=== PATIENT | male | born 1975 | race Two or more races ===

== ENCOUNTER 2016-09-09 10:35 | Inpatient (IN) | payer MEDICARE, OTHER ==
[2016-09-09] MEDS ORDERED: IPRATROPIUM 0.5 MG/2.5 ML NEBU INHALATION STA (11:01)
[2016-09-09] MEDS ORDERED: ALBUTEROL NEBULIZED 2.5 MG/3 ML INHALATION STA (11:01)
[2016-09-09] MEDS ORDERED: KETOROLAC 30 MG/ML 1 ML VIAL IVP STA (11:01)
[2016-09-09] MEDS ORDERED: ACETAMINOPHEN IV (For NPO) 1,000 MG in EMPTY BAG 1 BAG IVPB STA ×2 (11:01→13:52)
[2016-09-09] MEDS ORDERED: SODIUM CHLORIDE 0.9% 1,000 ML IV STA ×2 (11:01)
[2016-09-09] MEDS ORDERED: SODIUM CHLORIDE 0.9% 500 ML IV STA (11:01)
--- NOTE | 2016-09-09 11:28 | ED ---
General Adult HPI - General Chief complaint: Shortness of Breath Stated complaint: congestion Time Seen by Provider: 09/09/16 10:36 Source: family, EMS, RN notes reviewed, old records reviewed Mode of arrival: EMS Limitations: altered mental status - History of Present Illness Initial comments: This is a 40-year-old male here for evaluation. Patient is developmentally delayed history is limited, history of pain patient's her transfer. Work and EMS. Patient has had altered mental status today with known fever, no breathing difficulties. Patient with no known significant family history of sick contact - Related Data Home Medications Medication Instructions Recorded Confirmed Benztropine Mesylate [Cogentin] 1 mg PO BID@0800,1700 09/09/16 09/09/16 Divalproex ER [Depakote ER] 500 mg PO BID@0800,1700 09/09/16 09/09/16 Docusate [Colace] 100 mg PO DAILY@0800 09/09/16 09/09/16 chlorproMAZINE HCL [Thorazine] 100 mg PO DAILY@0800 09/09/16 09/09/16 chlorproMAZINE HCL [Thorazine] 500 mg PO DAILY@1700 09/09/16 09/09/16 guaiFENesin-DM 100-10MG/5ML 20 mg PO Q8H PRN 09/09/16 09/09/16 [Robitussin DM] Allergies Allergy/AdvReac Type Severity Reaction Status Date / Time No Known Allergies Allergy Verified 09/09/16 12:39 Review of Systems ROS Statement: Those systems with pertinent positive or pertinent negative responses have been documented in the HPI. ROS Other: All systems not noted in ROS Statement are negative. Past Medical History Additional Past Medical History / Comment(s): Developmentally delayed History of Any Multi-Drug Resistant Organisms: None Reported Additional Past Surgical History / Comment(s): Cardiac surgery to atira 30 years ago Past Psychological History: No Psychological Hx Reported Smoking Status: Never smoker Past Alcohol Use History: None Reported Past Drug Use History: None Reported General Exam Limitations: altered mental status General appearance: alert, anxious, in distress Head exam: Present: atraumatic, normocephalic, normal inspection Eye exam: Present: normal appearance, PERRL, EOMI. Absent: scleral icterus, conjunctival injection, periorbital swelling ENT exam: Present: mucous membranes dry Neck exam: Present: normal inspection. Absent: tenderness, meningismus, lymphadenopathy Respiratory exam: Present: normal lung sounds bilaterally, accessory muscle use , decreased breath sounds, prolonged expiratory. Absent: wheezes, rales, rhonchi, stridor Cardiovascular Exam: Present: normal rhythm, tachycardia, normal heart sounds. Absent: systolic murmur, diastolic murmur, rubs, gallop, clicks GI/Abdominal exam: Present: soft, normal bowel sounds. Absent: distended, tenderness, guarding, rebound, rigid Extremities exam: Present: normal inspection, full ROM, normal capillary refill. Absent: tenderness, pedal edema, joint swelling, calf tenderness Back exam: Present: normal inspection Neurological exam: Present: alert, oriented X3, CN II-XII intact Psychiatric exam: Present: normal affect, normal mood Skin exam: Present: warm, dry, intact, normal color. Absent: rash Course Vital Signs 09/09/16 09/09/16 09/09/16 10:42 11:21 11:30 Temperature 101.9 F H Pulse Rate 123 H 120 H 120 H Respiratory 20 18 Rate Blood Pressure 108/56 125/65 O2 Sat by Pulse 80 L 97 Oximetry 09/09/16 09/09/16 09/09/16 11:34 12:01 12:25 Temperature Pulse Rate 117 H 119 H 114 H Respiratory 18 Rate Blood Pressure 127/91 O2 Sat by Pulse 89 L Oximetry 09/09/16 13:33 Temperature Pulse Rate 114 H Respiratory 18 Rate Blood Pressure 112/59 O2 Sat by Pulse 92 L Oximetry - Reevaluation(s) Reevaluation #1: 09/09/16 13:54 Patient with minimal improvement after initial prolonged breathing treatment, oxygen still dropping into the 80s on nasal cannula Reevaluation #2: 09/09/16 13:54 Patient states he does feel much better with this fever noted control and with the breathing treatment, patient states he would like to go EKG Findings - EKG Comments: EKG Findings:: EKG shows sinus tachycardia rate 118, NE 162, QRS 96, QTc 462 Medical Decision Making - Medical Decision Making 40 male to ER for evaluation. This patient presents for evaluation of cough congestion fever shortness of breath. Patient with possible flu pneumonia, hypoxia, patient placed on nonrebreather breathing treatments, patient will be admitted for further evaluation of breathing, IV antibiotics. - Lab Data Result diagrams: 09/09/16 11:05 09/09/16 11:05 Lab Results 09/09/16 09/09/16 09/09/16 Range/Units 11:05 11:05 11:05 WBC 5.2 (3.8-10.6) k/uL RBC 4.40 (4.30-5.90) m/uL Hgb 13.9 (13.0-17.5) gm/dL Hct 39.1 (39.0-53.0) % MCV 88.8 (80.0-100.0) fL MCH 31.6 (25.0-35.0) pg MCHC 35.6 (31.0-37.0) g/dL RDW 12.9 (11.5-15.5) % Plt Count 64 L (150-450) k/uL Neutrophils % Not Reportable Neutrophils % (Manual) 45.5 % Band Neutrophils % 21.0 % Lymphocytes % Not Reportable Lymphocytes % (Manual) 16.5 % Monocytes % Not Reportable Monocytes % (Manual) 15.5 % Eosinophils % Not Reportable Basophils % Not Reportable Metamyelocytes % 1.5 % Neutrophils # Not Reportable Neutrophils # (Manual) 3.5 (1.3-7.7) k/uL Lymphocytes # Not Reportable Lymphocytes # (Manual) 0.9 L (1.0-4.8) k/uL Monocytes # Not Reportable Monocytes # (Manual) 0.8 (0-1.0) k/uL Eosinophils # Not Reportable Basophils # Not Reportable Nucleated RBCs 0 (0-0) /100 WBC Manual Slide Review Performed Toxic Granulation Present PT (9.0-12.0) sec INR (<1.1) APTT (22.0-30.0) sec Sodium 136 L (137-145) mmol/L Potassium 4.2 (3.5-5.1) mmol/L Chloride 98 (98-107) mmol/L Carbon Dioxide 25 (22-30) mmol/L Anion Gap 13 mmol/L BUN 27 H (9-20) mg/dL Creatinine 1.60 H (0.66-1.25) mg/dL Est GFR (MDRD) Af Amer 59 (>60 ml/min/1.73 sqM) Est GFR (MDRD) Non-Af 48 (>60 ml/min/1.73 sqM) Glucose 119 H (74-99) mg/dL Calcium 8.9 (8.4-10.2) mg/dL Magnesium 1.3 L (1.6-2.3) mg/dL Total Bilirubin 0.9 (0.2-1.3) mg/dL AST 67 H (17-59) U/L ALT 59 (21-72) U/L Alkaline Phosphatase 59 (38-126) U/L Total Creatine Kinase 191 H (55-170) U/L CK-MB (CK-2) 0.3 (0.0-2.4) ng/mL CK-MB (CK-2) Rel Index 0.2 Troponin I 0.052 H* (0.000-0.034) ng/mL Total Protein 7.0 (6.3-8.2) g/dL Albumin 3.7 (3.5-5.0) g/dL Influenza Type A RNA (Not Detectd) Influenza Type B (PCR) (Not Detectd) 09/09/16 09/09/16 Range/Units 11:23 12:22 WBC (3.8-10.6) k/uL RBC (4.30-5.90) m/uL Hgb (13.0-17.5) gm/dL Hct (39.0-53.0) % MCV (80.0-100.0) fL MCH (25.0-35.0) pg MCHC (31.0-37.0) g/dL RDW (11.5-15.5) % Plt Count (150-450) k/uL Neutrophils % Neutrophils % (Manual) % Band Neutrophils % % Lymphocytes % Lymphocytes % (Manual) % Monocytes % Monocytes % (Manual) % Eosinophils % Basophils % Metamyelocytes % % Neutrophils # Neutrophils # (Manual) (1.3-7.7) k/uL Lymphocytes # Lymphocytes # (Manual) (1.0-4.8) k/uL Monocytes # Monocytes # (Manual) (0-1.0) k/uL Eosinophils # Basophils # Nucleated RBCs (0-0) /100 WBC Manual Slide Review Toxic Granulation PT 12.1 H (9.0-12.0) sec INR 1.2 (<1.1) APTT 32.4 H (22.0-30.0) sec Sodium (137-145) mmol/L Potassium (3.5-5.1) mmol/L Chloride (98-107) mmol/L Carbon Dioxide (22-30) mmol/L Anion Gap mmol/L BUN (9-20) mg/dL Creatinine (0.66-1.25) mg/dL Est GFR (MDRD) Af Amer (>60 ml/min/1.73 sqM) Est GFR (MDRD) Non-Af (>60 ml/min/1.73 sqM) Glucose (74-99) mg/dL Calcium (8.4-10.2) mg/dL Magnesium (1.6-2.3) mg/dL Total Bilirubin (0.2-1.3) mg/dL AST (17-59) U/L ALT (21-72) U/L Alkaline Phosphatase (38-126) U/L Total Creatine Kinase (55-170) U/L CK-MB (CK-2) (0.0-2.4) ng/mL CK-MB (CK-2) Rel Index Troponin I (0.000-0.034) ng/mL Total Protein (6.3-8.2) g/dL Albumin (3.5-5.0) g/dL Influenza Type A RNA Detected H (Not Detectd) Influenza Type B (PCR) Not Detected (Not Detectd) - Radiology Data Radiology results: report reviewed (Chest x-ray 2 view does show positive left lower lobe pneumonia), image reviewed Critical Care Time Critical Care Time: Yes Total Critical Care Time: 31 Disposition Clinical Impression: Community acquired pneumonia, Fever, Sepsis, Hypoxia Disposition: ADMITTED IP TO THIS HOSP Condition: Serious Referrals: Nonstaff,Physician [Primary Care Provider] - 1-2 days
[2016-09-09 11:43] LABS: INR 1.2 (<1.1); Partial Thromboplastin Time 32.4 sec (22.0-30.0); Prothrombin Time 12.1 sec (9.0-12.0)
[2016-09-09 11:43] LABS: Calcium 8.9 mg/dL (8.4-10.2); Magnesium 1.3 mg/dL (1.6-2.3); Potassium 4.2 mmol/L (3.5-5.1); Total Bilirubin 0.9 mg/dL (0.2-1.3)
[2016-09-09 11:50] LABS: CHCM 36.1; HCT 39.1 % (39.0-53.0); HGB 13.9 gm/dL (13.0-17.5); Immature Gran Flag Slight; MCH 31.6 pg (25.0-35.0); MCHC 35.6 g/dL (31.0-37.0); MCV 88.8 fL (80.0-100.0); Mean Platelet Volume 9.9; RDW 12.9 % (11.5-15.5); WBC 5.2 k/uL (3.8-10.6); WBC (Perox) 5.17
[2016-09-09 11:59] LABS: Creatine Kinase MB 0.3 ng/mL (0.0-2.4)
[2016-09-09 12:03] LABS: Troponin I 0.052 ng/mL (0.000-0.034)
[2016-09-09 12:30] LABS: Add Differential Manual Differential; Manual Review Performed
[2016-09-09 12:33] LABS: Nucleated Red Blood Cells 0 /100 WBC (0-0)
[2016-09-09 12:36] LABS: Metamyelocytes % 1.5 %; Total Cells Counted 200; Toxic Granulation Present
--- NOTE | 2016-09-09 12:43 | XR ---
EXAMINATION TYPE: XR chest 2V DATE OF EXAM: 09/09/2016 12:33 PM HISTORY: difficulty breathing. REFERENCE: NONE. FINDINGS: There has been a previous midline sternotomy. There is a left lower lobe infiltrate. This is somewhat masslike in its appearance. There is some ate lectasis at the right lung base. Heart size upper limits of normal. Pleural spaces are clear. IMPRESSION: LEFT LOWER LOBE INFILTRATE. FOLLOW-UP TO RESOLUTION IS SUGGESTED.
[2016-09-09] MEDS ORDERED: LEVOFLOXACIN 750MG-D5W PMX 750 MG in DEXTROSE/WATER 1 150ML.BAG IVPB STA (12:48)
[2016-09-09] MEDS ORDERED: OSELTAMIVIR 75 MG CAP PO STA (13:34)
[2016-09-09] MEDS ORDERED: PNEUMONIA PROTOCOL UTILIZED 1 EACH MISC PO PRN (13:48)
[2016-09-09] MEDS ORDERED: IBUPROFEN 800 MG TAB PO PRN (13:52)
[2016-09-09] MEDS: MAGNESIUM SULFATE-D5W PMX 1 GM in DEXTROSE/WATER 1 100ML.BAG IVPB SCH ×2 (15:34→16:18)
[2016-09-09] MEDS: IPRATROPIUM-ALBUTEROL 3 ML NEB INHALATION SCH ×2 (15:56→19:38)
[2016-09-09] MEDS: SODIUM CHLORIDE 0.9% 1,000 ML IV SCH (16:35)
[2016-09-09 17:04] LABS: ABG Base Excess -1.3 mmol/L; ABG HCO3 23 mmol/L (21-25); ABG PCO2 37 mmHg (35-45); ABG PH 7.41 (7.35-7.45); ABG PO2 62 mmHg (83-108); ABG TCO2 24 mmol/L (19-24)
[2016-09-09 18:13] LABS: Glucose,Whole Blood 132 mg/dL (75-99)
[2016-09-09 18:29] VITALS: BMI 31.0
[2016-09-09] MEDS ORDERED: LORazepam 2 MG/ML SYRINGE IV PRN (18:31)
[2016-09-09] MEDS ORDERED: DIVALPROEX ER 500 MG TAB.ER.24H PO STA (18:57)
[2016-09-09] MEDS ORDERED: BENZTROPINE MESYLATE 1 MG TAB PO ONE (19:00)
[2016-09-09] MEDS: ACETAMINOPHEN IV (For NPO) 1,000 MG in EMPTY BAG 1 BAG IVPB SCH (19:06)
--- NOTE | 2016-09-09 19:07 | P.CNPUL ---
History of Present Illness Consult date: 09/09/16 Reason for consult: pneumonia History of present illness: 40-year-old male patient with mental retardation/trainable mental illness, history of congenital heart disease requiring a cardiac surgery at a young age ( probably a repair of a PFO or ASD/VSD), along with history of seizures, who lives in a [facility] in [facility] in [place]. The patient was visiting his family and his father noted that over the past 24 hours the patient 's breathing has gotten worse and he has congested cough and he labored breathing. No documented fever or chills. History is somewhat limited because of patient's underlying mental retardation. Despite his mental limitation, the patient according to the father is able to perform some activities of daily life including self-feeding, toileting and interacting with others on a regular basis. In the burst department, the patient was found to be febrile with a temperature of 11.9. His pulse was 123. His aspiration was 20 and his blood pressure was 108/56. He was hypoxic with a pulse ox of 80% on room air. He was placed on high flow oxygen at 15 L per minute nasal cannula. Influenza screen was positive for influenza A. He was started on Tamiflu and Levaquin. He was sent to med surgical floor and following that the patient got moved to the intensive care unit due to concern of hypoxemia. Currently the patient is on IV fluids at 100 mL an hour. He received a total of 2 L of IV bolus. He seems to be much more comfortable and less short of breath. He still requiring high flow oxygen at 15 L. Chest exit shows lower lobe infiltrates worse on the left. No pleural effusion. On his cell counts, the patient is otherwise second of 5.2 with 21% bandemia. Platelet counts are low at 64,000. The patient seems to have a acute kidney injury with a creatinine of 1.6. Could be related to a prerenal azotemic picture. Magnesium is low at 1.3. First set of troponin was at 0.05. Her blood gases that were done on the percent nonrebreather facemask showed a pH of 7.41 with a pCO2 of 37 and pO2 of 62. No reported aspiration. Review of Systems ROS unobtainable: due to mental status Past Medical History Additional Past Medical History / Comment(s): Developmentally delayed, Mental retardation, congenital heart disease with a cardiac surgery was done at the young pediatric age which involves closure of a hole between the cardiac chambers which could be potentially a PFO or ASD or VSD, seizure disorder History of Any Multi-Drug Resistant Organisms: None Reported Additional Past Surgical History / Comment(s): Cardiac surgery 30 years ago Past Psychological History: No Psychological Hx Reported Smoking Status: Never smoker Past Alcohol Use History: None Reported Past Drug Use History: None Reported Medications and Allergies Home Medications Medication Instructions Recorded Confirmed Type Benztropine Mesylate [Cogentin] 1 mg PO BID@0800,1700 09/09/16 09/09/16 History Divalproex ER [Depakote ER] 500 mg PO BID@0800,1700 09/09/16 09/09/16 History Docusate [Colace] 100 mg PO DAILY@0800 09/09/16 09/09/16 History chlorproMAZINE HCL [Thorazine] 100 mg PO DAILY@0800 09/09/16 09/09/16 History chlorproMAZINE HCL [Thorazine] 500 mg PO DAILY@1700 09/09/16 09/09/16 History guaiFENesin-DM 100-10MG/5ML 20 mg PO Q8H PRN 09/09/16 09/09/16 History [Robitussin DM] Allergies Allergy/AdvReac Type Severity Reaction Status Date / Time No Known Allergies Allergy Verified 09/09/16 12:39 Physical Exam Vitals: Vital Signs Temp Pulse Pulse Resp BP BP Pulse Ox 09/09/16 17:51 97.9 F 107 H 19 130/62 93 L 09/09/16 17:33 97.1 F L 106 H 24 91/56 90 L 09/09/16 17:16 18 09/09/16 16:07 105 H 09/09/16 16:00 99.1 F 09/09/16 15:56 111 H 09/09/16 15:52 89 18 98/57 90 L 09/09/16 14:13 92 L 09/09/16 13:59 101.4 F H 114 H 18 108/56 93 L Intake and Output 09/09/16 09/09/16 09/09/16 06:59 14:59 22:59 Other: Weight 95.25 kg Patient Weight 09/10/16 06:59 Weight 95.25 kg Head exam was generally normal. There was no scleral icterus or corneal arcus. Mucous membranes were moist. Mucous membranes are dry and the patient is a large tongue with significant crowding of the posterior oropharynx. No with or neck masses. No thrush. Lungs sounds are diminished in lung bases along with some bibasilar crackles also on the left. Heart sounds are regular, slightly tachycardic, positive S1-S2 and there is no significant murmurs appreciated. Sternum stable clean and intact.Abdominal exam revealed normal bowel sounds. The abdomen was soft, non-tender, and without masses, organomegaly, or appreciable enlargement of the abdominal aorta.Examination of the extremities revealed easily palpable radial, femoral and pedal pulses. There was no cyanosis , clubbing or edema. Neurologically the patient is awake and he is following Simple Commands. The Patient Is Able to Move All 4 Extremities without Any Limitation. Results - Laboratory Findings CBC and BMP: 09/09/16 11:05 09/09/16 11:05 ABG ABG pH 7.41 (7.35-7.45) 09/09/16 16:48 ABG pCO2 37 mmHg (35-45) 09/09/16 16:48 ABG pO2 62 mmHg (83-108) L 09/09/16 16:48 ABG O2 Saturation 92.0 % (94-97) L 09/09/16 16:48 PT/INR, D-dimer PT 12.1 sec (9.0-12.0) H 09/09/16 11:23 INR 1.2 (<1.1) 09/09/16 11:23 Abnormal lab findings: Abnormal Labs 09/09/16 09/09/16 16:48 18:01 ABG pO2 62 L ABG O2 Saturation 92.0 L POC Glucose (mg/dL) 132 H - Diagnostic Findings Chest x-ray: image reviewed Assessment and Plan Plan: Assessment 1 acute bilateral lower lobe and he was a pneumonia, worse on the left. 2 acute hypoxic respiratory failure secondary to above 3 acute kidney injury probably related to intravascular volume depletion/ dehydration. Rule out prerenal azotemia. Rule out ATN 4 bandemia without leukocytosis 5 thrombocytopenia, chronicity is not known, no signs of any DIC at this point knowing that the rest of the correlation profile is within normal limits 6 mental retardation/developmental delay 7 congenital heart disease with a previous cardiac surgery 8 seizure disorder Plan Continue IV fluid with normal saline at the rate of 100 and hour. The patient or the being given 2 L of IV fluid bolus. Monitor urine output. Continue Tamiflu. Continue Levaquin. Continue systemic steroids. Continue bronchodilators. Keep the patient on high flow oxygen 15 L/m nasal cannula. Daily chest x-rays. Keep the patient in droplet isolation. All of his outpatient oral medication will be resumed. He is a full code and he'll be monitored very closely in the ICU. Condition is critical at this point. Would offer this patient DVT and GI prophylaxis in addition.
[2016-09-09] MEDS ORDERED: CHLORPROMAZINE 100 MG PO ONE (19:30)
[2016-09-09 19:56] LABS: Hemoglobin A1C 5.1 % (4.2-6.1)
[2016-09-09] MEDS: methylPREDNISolone SOD SUCCI 40 MG/ML 1 ML VIAL IV SCH (20:04)
[2016-09-09 20:52] LABS: Appearance,Urine Clear (Clear); Bilirubin,Urine Negative (Negative); Glucose,Urine (UA) Negative (Negative); Ketones,Urine Negative (Negative); Leukocyte Esterase,Urine Negative (Negative); Nitrite,Urine Negative (Negative); PH, Urine 5.5 (5.0-8.0); Protein,Urine Negative (Negative); Specific Gravity,Urine 1.008 (1.001-1.035); UA Billing (MACRO vs. MICRO) CHEM; Urobilinogen,Urine <2.0 mg/dL (<2.0)
[2016-09-09] MEDS: INSULIN LISPRO (humaLOG) 300 UNIT/3 ML VIAL SQ SCH (20:52)
[2016-09-09 20:53] LABS: Glucose,Whole Blood 108 mg/dL (75-99)
[2016-09-09] MEDS: OSELTAMIVIR 75 MG CAP PO SCH (20:53)
[2016-09-09] MEDS: BUDESONIDE 1 MG/2 ML NEBU INHALATION SCH (20:55)
[2016-09-09] MEDS: FORMOTEROL FUMARATE 20 MCG/2 ML NEBU INHALATION SCH (20:56)
--- NOTE | 2016-09-09 22:20 | HP ---
DATE OF ADMISSION: 09/09/2016 CHIEF COMPLAINT: Shortness of breath and cough. HISTORY OF PRESENT ILLNESS: This 40-year-old gentleman with a past history of developmental delay, cardiac surgery, being followed by a primary physician elsewhere, apparently in [place], was taken to [facility] for further evaluation and treatment. The patient was complaining of shortness of breath. He is living in a facility in [place]. The family lives in [place]. The patient was complaining of shortness of breath and cough and multiple other symptomatology. Patient came to [facility]. Chest x-ray showed bilateral pneumonia. Influenza A was positive. Patient had multiple lab abnormalities, including thrombocytopenia as well as renal failure. There is no history of any fever, rigor or chills. A detailed history could not be taken from the patient because of change in mental status. Most of the history was taken from my discussion with staff as well as review of the chart to the. PAST MEDICAL HISTORY: 1. History of developmental delay. 2. History of cardiac surgery. 3. Possibly ASD defect. Medications are: 1. Thorazine 100 mg p.o. daily. 2. Robitussin DM 20 mg q.8 p.r.n. 3. Colace 100 mg p.o. daily. 4. Thorazine 500 mg p.o. daily. 5. Cogentin 1 mg p.o. b.i.d. 6. Depakote ER 500 mg p.o. b.i.d. ALLERGIES: NONE. Family history, social history, review of systems could not be taken at length. No smoking or alcohol per chart. PHYSICAL EXAMINATION: Patient is conscious, oriented x1. Pulse 106, blood pressure 91/53, respiration 24, temperature 97.1, pulse ox 98% on 15 with non-breather. HEENT: Conjunctivae normal. Oral mucosa moist. NECK: Accessory muscles or respiration acting. CARDIOVASCULAR SYSTEM: S1, S2 muffled. No S3. No S4. RESPIRATORY SYSTEM: Breath sounds diminished at the bases. Bilateral scattered rhonchi and crackles. No bronchial breath sounds. ABDOMEN: Soft, nontender. No mass palpable. LEGS: No edema. No swelling. NERVOUS SYSTEM: Higher functions as mentioned earlier. Moves all 4 limbs. No focal motor or sensory deficit. LYMPHATICS: No lymph node palpable in neck, axillae or groin. SKIN: No ulcer, rash, bleeding. Labs at this time show platelets 64, white count 5.2. INR is 1.2. ABGs showed pO2 of 62. Creatinine is 1.60, sodium 136. Troponin 0.052. ASSESSMENT: 1. Acute influenza A with bilateral pneumonia, possibly Gram-negative with sepsis with acute hypoxic respiratory failure. 2. Hyponatremia. 3. Increased random blood sugar. 4. Increased creatinine with possible acute renal failure, possible prerenal factors. 5. Troponin 0.052, indeterminate. 6. Thrombocytopenia of undetermined etiology. 7. History of developmental delay. 8. History of cardiac surgery, possibly ASD repair. 9. FULL CODE. RECOMMENDATIONS AND DISCUSSION: In this 40-year-old gentleman who presented with multiple complex medical issues, we will monitor the patient closely, continue the current medication, continue with symptomatic treatment. I would recommend broad-spectrum IV antibiotics and also bronchodilators. Consult Dr. Dorantes. Probable transfer to ICU. Prognosis guarded because of multiple complex medical issues. Further recommendations to follow. MARKD
[2016-09-09] MEDS: BENZTROPINE MESYLATE 1 MG TAB PO SCH (23:36)
[2016-09-09] MEDS: DIVALPROEX ER 500 MG TAB.ER.24H PO SCH (23:37)
[2016-09-10] MEDS: ACETAMINOPHEN IV (For NPO) 1,000 MG in EMPTY BAG 1 BAG IVPB SCH ×3 (00:16→19:16)
[2016-09-10] MEDS: SODIUM CHLORIDE 0.9% 1,000 ML IV SCH ×2 (00:16→13:02)
[2016-09-10] MEDS: methylPREDNISolone SOD SUCCI 40 MG/ML 1 ML VIAL IV SCH ×5 (00:16→23:28)
[2016-09-10 04:44] LABS: Anion Gap 12 mmol/L; Blood Urea Nitrogen 20 mg/dL (9-20); Calcium 8.5 mg/dL (8.4-10.2); Carbon Dioxide 23 mmol/L (22-30); Chloride 104 mmol/L (98-107); Glucose 118 mg/dL (74-99); Non-African American GFR(MDRD) >60 (>60 ml/min/1.73 sqM); Phosphorous 2.4 mg/dL (2.5-4.5); Potassium 4.9 mmol/L (3.5-5.1); Sodium 139 mmol/L (137-145)
[2016-09-10 04:48] LABS: Basophils % (A) 0 %; CH 31.3; CHCM 34.9; Eosinophils % (A) 0 %; HDW 2.89; HGB 14.4 gm/dL (13.0-17.5); Luc % (Auto) 1; Lymphocytes # (A) 0.5 k/uL (1.0-4.8); Lymphocytes % (A) 6 %; MCH 30.8 pg (25.0-35.0); MCHC 34.2 g/dL (31.0-37.0); MCV 89.9 fL (80.0-100.0); Mean Platelet Volume 7.7; Monocytes # (A) 0.5 k/uL (0-1.0); Monocytes % (A) 6 %; Neutrophils # (A) 6.7 k/uL (1.3-7.7); Neutrophils % (A) 86 %; RBC 4.67 m/uL (4.30-5.90); RDW 13.1 % (11.5-15.5); WBC 7.8 k/uL (3.8-10.6); WBC (Perox) 8.52
[2016-09-10 05:10] LABS: Manual Review Performed
[2016-09-10] MEDS ORDERED: Phosphorus Replacement Protoco 1 EACH MISC MISCELLANE PRN (05:16)
[2016-09-10] MEDS ORDERED: SODIUM PHOSPHATE 10 MMOL in SODIUM CHLORIDE 0.9% 250 ML IVPB ONE (06:30)
[2016-09-10] MEDS: BUDESONIDE 1 MG/2 ML NEBU INHALATION SCH ×2 (07:07→19:31)
[2016-09-10] MEDS: IPRATROPIUM-ALBUTEROL 3 ML NEB INHALATION SCH ×4 (07:07→19:31)
[2016-09-10] MEDS: FORMOTEROL FUMARATE 20 MCG/2 ML NEBU INHALATION SCH ×2 (07:07→19:31)
--- NOTE | 2016-09-10 07:07 | XR ---
EXAMINATION TYPE: XR chest 1V DATE OF EXAM: 09/10/2016 6:36 AM CLINICAL HISTORY: Difficulty breathing and pneumonia progress study. TECHNIQUE: Single AP portable semiupright view of the chest is obtained. COMPARISON: Chest x-ray from one day earlier FINDINGS: Sternal wires are redemonstrated. Low lung volumes are present. There is persistent bilate ral lower lung opacity more prominent in the right lung base on current study felt stable in the left side on current exam. Upper lungs remain clear without pneumothorax. Cardiac silhouette size is enla rged on current exam. Osseous structures are intact. IMPRESSION: Diminished inspiration on current study with new mild cardiomegaly. There is persistent l eft lower lung infiltrate and/or atelectasis felt stable with worsening right basilar infiltrate and/ or atelectasis now noted. Small right pleural effusion is also felt present seen better on current st udy.
[2016-09-10 07:49] LABS: Glucose,Whole Blood 123 mg/dL (75-99)
[2016-09-10] MEDS ORDERED: DIVALPROEX ER 500 MG TAB.ER.24H PO SCH (08:00)
[2016-09-10] MEDS: chlorproMAZINE 25 MG TAB PO SCH (08:00)
[2016-09-10] MEDS: DIVALPROEX ER 500 MG TAB.ER.24H PO SCH ×2 (08:00→21:14)
[2016-09-10] MEDS ORDERED: BENZTROPINE MESYLATE 1 MG TAB PO SCH (08:00)
[2016-09-10] MEDS: INSULIN LISPRO (humaLOG) 300 UNIT/3 ML VIAL SQ SCH ×4 (08:29→21:13)
[2016-09-10] MEDS: OSELTAMIVIR 75 MG CAP PO SCH ×2 (08:30→21:14)
[2016-09-10] MEDS: BENZTROPINE MESYLATE 1 MG TAB PO SCH ×2 (08:30→21:14)
[2016-09-10] MEDS: PANTOPRAZOLE 40 MG/10 ML VIAL IVP SCH (09:04)
[2016-09-10] MEDS: ENOXAPARIN 40 MG/0.4 ML SYRINGE SQ SCH (09:04)
[2016-09-10 12:18] LABS: Glucose,Whole Blood 132 mg/dL (75-99)
[2016-09-10] MEDS: LEVOFLOXACIN 750MG-D5W PMX 750 MG in DEXTROSE/WATER 1 150ML.BAG IVPB SCH (13:03)
--- NOTE | 2016-09-10 13:25 | P.PN ---
Subjective 40-year-old male patient with mental retardation/trainable mental illness, history of congenital heart disease requiring a cardiac surgery at a young age ( probably a repair of a PFO or ASD/VSD), along with history of seizures, who lives in a [place] [facility] in the [facility] in [place]. The patient was visiting his family and his father noted that over the past 24 hours the patient 's breathing has gotten worse and he has congested cough and he labored breathing. No documented fever or chills. History is somewhat limited because of patient's underlying mental retardation. Despite his mental limitation, the patient according to the father is able to perform some activities of daily life including self-feeding, toileting and interacting with others on a regular basis. In the burst department, the patient was found to be febrile with a temperature of 11.9. His pulse was 123. His aspiration was 20 and his blood pressure was 108/56. He was hypoxic with a pulse ox of 80% on room air. He was placed on high flow oxygen at 15 L per minute nasal cannula. Influenza screen was positive for influenza A. He was started on Tamiflu and Levaquin. He was sent to med surgical floor and following that the patient got moved to the intensive care unit due to concern of hypoxemia. Currently the patient is on IV fluids at 100 mL an hour. He received a total of 2 L of IV bolus. He seems to be much more comfortable and less short of breath. He still requiring high flow oxygen at 15 L. Chest exit shows lower lobe infiltrates worse on the left. No pleural effusion. On his cell counts, the patient is otherwise second of 5.2 with 21% bandemia. Platelet counts are low at 64,000. The patient seems to have a acute kidney injury with a creatinine of 1.6. Could be related to a prerenal azotemic picture. Magnesium is low at 1.3. First set of troponin was at 0.05. Her blood gases that were done on the percent nonrebreather facemask showed a pH of 7.41 with a pCO2 of 37 and pO2 of 62. No reported aspiration. On 09/10/2016, the patient is being seen in follow-up. He is in the intensive care unit for bilateral lower lobe pneumonia secondary to influenza. The patient on Tamiflu. The patient is also on empiric antibiotic coverage with Levaquin. Condition is essentially the same. His was resuscitated IV fluids. Creatinine is down to 1.2. No significant leukocytosis. The follow-up chest x- ray today shows diminished aspiration along with some cardiomegaly and persistent infiltration of the lung bases more so on the left and there is also infiltration of the right side. Patient's mentation is essentially the same. He is tolerating oral intake. No nausea. No vomiting. No agitation. Echocardiogram was done earlier this morning and the results are still pending for now. Objective - Vital Signs Vital signs: Vital Signs Temp 97.2 F L 09/10/16 04:00 Pulse 95 09/10/16 12:00 Resp 22 09/10/16 12:00 BP 123/63 09/10/16 12:00 Pulse Ox 92 L 09/10/16 12:00 Intake & Output 09/09/16 09/10/16 09/10/16 18:59 06:59 18:59 Intake Total 100 1425 525 Output Total 1200 Balance 100 225 525 Weight 95.25 kg 94.2 kg Intake: IV 100 1325 525 0.9 NACL 100 1200 400 Sodium Phosphate 10 mmol 125 125 In Sodium Chloride 0.9% 250 ml @ 125 mls/hr IVPB ONCE ONE Rx#:[id number] Oral 100 Output: Urine 1200 Other: Voiding Method Urinal Urinal # Voids 1 1 # Bowel Movements 1 - Exam Head exam was generally normal. There was no scleral icterus or corneal arcus. Mucous membranes were moist. Mucous membranes are dry and the patient is a large tongue with significant crowding of the posterior oropharynx. No with or neck masses. No thrush. Lungs sounds are diminished in lung bases along with some bibasilar crackles also on the left. Heart sounds are regular, slightly tachycardic, positive S1-S2 and there is no significant murmurs appreciated. Sternum stable clean and intact.Abdominal exam revealed normal bowel sounds. The abdomen was soft, non-tender, and without masses, organomegaly, or appreciable enlargement of the abdominal aorta.Examination of the extremities revealed easily palpable radial, femoral and pedal pulses. There was no cyanosis , clubbing or edema. Neurologically the patient is awake and he is following Simple Commands. The Patient Is Able to Move All 4 Extremities without Any Limitation. - Labs CBC & Chem 7: 09/10/16 03:57 09/10/16 03:57 Labs: Abnormal Lab Results - Last 24 Hours (Table) 09/09/16 09/09/16 09/09/16 Range/Units 16:48 18:01 20:51 Plt Count (150-450) k/uL Lymphocytes # (1.0-4.8) k/uL ABG pO2 62 L (83-108) mmHg ABG O2 Saturation 92.0 L (94-97) % Creatinine (0.66-1.25) mg/dL Glucose (74-99) mg/dL POC Glucose (mg/dL) 132 H 108 H (75-99) mg/dL Phosphorus (2.5-4.5) mg/dL 09/10/16 09/10/16 09/10/16 Range/Units 03:57 03:57 07:47 Plt Count 57 L (150-450) k/uL Lymphocytes # 0.5 L (1.0-4.8) k/uL ABG pO2 (83-108) mmHg ABG O2 Saturation (94-97) % Creatinine 1.26 H (0.66-1.25) mg/dL Glucose 118 H (74-99) mg/dL POC Glucose (mg/dL) 123 H (75-99) mg/dL Phosphorus 2.4 L (2.5-4.5) mg/dL 09/10/16 Range/Units 12:16 Plt Count (150-450) k/uL Lymphocytes # (1.0-4.8) k/uL ABG pO2 (83-108) mmHg ABG O2 Saturation (94-97) % Creatinine (0.66-1.25) mg/dL Glucose (74-99) mg/dL POC Glucose (mg/dL) 132 H (75-99) mg/dL Phosphorus (2.5-4.5) mg/dL Assessment and Plan Plan: Assessment 1 acute bilateral lower lobe and he was a pneumonia, worse on the left. On today's evaluation of 09/10/2016, the patient's condition remains stable. No worsening in his oxygenation. No changes in his x-ray findings. Still short of breath with limited amount of activity and the patient is still covered with same antibiotic coverage including a combination of Tamiflu and Levaquin. 2 acute hypoxic respiratory failure secondary to above 3 acute kidney injury probably related to intravascular volume depletion/ dehydration. Rule out prerenal azotemia. Rule out ATN On 09/10/2016 the patient's renal function improvements , creatinine is down to 1.26 4 bandemia without leukocytosis 5 thrombocytopenia, chronicity is not known, no signs of any DIC at this point knowing that the rest of the correlation profile is within normal limits 6 mental retardation/developmental delay 7 congenital heart disease with a previous cardiac surgery 8 seizure disorder Plan keep the patient intensive care unit. . Continue same management. Repeat chest x-ray in the morning.monitor the platelet counts. We'll continue to follow.
--- NOTE | 2016-09-10 14:49 | ECHOF ---
Referral Reason:sepsis MEASUREMENTS -------- HEIGHT: 175.3 cm WEIGHT: 93.9 kg BP: 113/62 IVSd: 0.7 cm (0.6 - 1.1) LVIDd: 3.8 cm (3.9 - 5.3) LVPWd: 1.1 cm (0.6 - 1.1) IVSs: 1.8 cm LVIDs: 2.0 cm LVPWs: 1.7 cm Ao Diam: 3.6 cm (2.0 - 3.7) AV Cusp: 2.6 cm (1.5 - 2.6) LA Diam: 3.8 cm (2.7 - 3.8) MV EXCURSION: 17.701 mm (> 18.000) MV EF SLOPE: 43 mm/s (70 - 150) EPSS: 0.3 cm MV E Kevin: 1.01 m/s MV DecT: 179 ms MV A Kevin: 0.80 m/s MV E/A Ratio: 1.26 RAP: 5.00 mmHg RVSP: 12.04 mmHg FINDINGS -------- Sinus rhythm. This was a technically adequate study. Left ventricular wall thickness is normal. Overall left ventricular systolic function is normal with, an EF between 55 - 60 %. The right ventricle is normal in size and function. The left atrium is normal in size. The right atrium is normal in size. The aortic valve was not well visualized. The mitral valve leaflets are mildly thickened. There is trace mitral regurgitation. Trace tricuspid regurgitation present. The right ventricular systolic pressure, as measured by Doppler, is 12.04mmHg. Pulmonic valve appears structurally normal. The aortic root, ascending aorta and aortic arch are normal. The pericardium is normal. CONCLUSIONS -------- 1. Sinus rhythm. 2. There is trace mitral regurgitation. 3. Trace tricuspid regurgitation present. 4. The right ventricular systolic pressure, as measured by Doppler, is 12.04mmHg. 5. Pulmonic valve appears structurally normal. 6. The aortic root, ascending aorta and aortic arch are normal. 7. The pericardium is normal. 8. This was a technically adequate study. 9. Left ventricular wall thickness is normal. 10. Overall left ventricular systolic function is normal with, an EF between 55 - 60 %. 11. The right ventricle is normal in size and function. 12. The left atrium is normal in size. 13. The right atrium is normal in size. 14. The aortic valve was not well visualized. 15. The mitral valve leaflets are mildly thickened. SP[employer]NER FRAME: Dori Mejias RDCS
[2016-09-10] MEDS ORDERED: chlorproMAZINE 25 MG TAB PO SCH (17:00)
[2016-09-10 17:48] LABS: Glucose,Whole Blood 220 mg/dL (75-99)
[2016-09-10] MEDS: CHLORPROMAZINE 100 MG PO SCH (19:22)
[2016-09-10 21:14] LABS: Glucose,Whole Blood 173 mg/dL (75-99)
[2016-09-11 04:59] LABS: Anion Gap 8 mmol/L; Blood Urea Nitrogen 22 mg/dL (9-20); Calcium 8.3 mg/dL (8.4-10.2); Carbon Dioxide 26 mmol/L (22-30); Chloride 109 mmol/L (98-107); Glucose 142 mg/dL (74-99); Non-African American GFR(MDRD) >60 (>60 ml/min/1.73 sqM); Potassium 4.8 mmol/L (3.5-5.1); Sodium 143 mmol/L (137-145)
[2016-09-11] MEDS ORDERED: Phosphorus Replacement Protoco 1 EACH MISC MISCELLANE PRN (05:09)
[2016-09-11 05:31] LABS: Basophils % (A) 0 %; CH 30.9; CHCM 34.3; Eosinophils % (A) 0 %; HCT 38.2 % (39.0-53.0); HDW 2.94; Luc # (Auto) 0.07; Luc % (Auto) 1; Lymphocytes # (A) 0.5 k/uL (1.0-4.8); Lymphocytes % (A) 7 %; MCH 30.9 pg (25.0-35.0); MCHC 34.1 g/dL (31.0-37.0); MCV 90.5 fL (80.0-100.0); Mean Platelet Volume 7.9; Monocytes # (A) 0.3 k/uL (0-1.0); Monocytes % (A) 4 %; Neutrophils # (A) 6.4 k/uL (1.3-7.7); Neutrophils % (A) 89 %; RBC 4.22 m/uL (4.30-5.90); RDW 13.1 % (11.5-15.5); WBC 7.2 k/uL (3.8-10.6); WBC (Perox) 8.09
[2016-09-11] MEDS: SODIUM PHOSPHATE 10 MMOL in SODIUM CHLORIDE 0.9% 250 ML IVPB SCH ×2 (05:50→08:04)
[2016-09-11] MEDS: methylPREDNISolone SOD SUCCI 40 MG/ML 1 ML VIAL IV SCH ×3 (05:50→18:30)
[2016-09-11] MEDS: SODIUM CHLORIDE 0.9% 1,000 ML IV SCH (05:51)
[2016-09-11 07:29] LABS: Glucose,Whole Blood 131 mg/dL (75-99)
--- NOTE | 2016-09-11 07:49 | XR ---
EXAMINATION TYPE: XR chest 1V DATE OF EXAM: 09/11/2016 6:30 AM COMPARISON: Prior chest x-ray 10 September 2016 HISTORY: Pneumonia TECHNIQUE: Single frontal view of the chest is obtained. FINDINGS: Exam is expiratory and rotated. Patient is post median sternotomy and the heart is enlarge d. No evident pneumothorax. Bilateral airspace disease is suspected. IMPRESSION: Correlate for congestive heart failure, pneumonia, follow-up recommended
[2016-09-11] MEDS: IPRATROPIUM-ALBUTEROL 3 ML NEB INHALATION SCH ×4 (07:51→19:54)
[2016-09-11] MEDS: FORMOTEROL FUMARATE 20 MCG/2 ML NEBU INHALATION SCH ×2 (07:51→19:54)
[2016-09-11] MEDS: BUDESONIDE 1 MG/2 ML NEBU INHALATION SCH ×2 (07:51→19:54)
[2016-09-11] MEDS: chlorproMAZINE 25 MG TAB PO SCH (07:59)
[2016-09-11] MEDS: INSULIN LISPRO (humaLOG) 300 UNIT/3 ML VIAL SQ SCH ×4 (07:59→21:44)
[2016-09-11] MEDS: ENOXAPARIN 40 MG/0.4 ML SYRINGE SQ SCH (08:00)
[2016-09-11] MEDS: BENZTROPINE MESYLATE 1 MG TAB PO SCH ×2 (08:00→21:43)
[2016-09-11] MEDS: DIVALPROEX ER 500 MG TAB.ER.24H PO SCH ×2 (08:00→21:44)
[2016-09-11] MEDS: PANTOPRAZOLE 40 MG/10 ML VIAL IVP SCH (08:01)
[2016-09-11] MEDS: OSELTAMIVIR 75 MG CAP PO SCH ×2 (08:01→21:43)
--- NOTE | 2016-09-11 08:05 | PN ---
DATE OF SERVICE: 09/10/2016 This 40-year-old gentleman who was admitted with acute influenza A with bilateral pneumonia also had features subsequently of acute hypoxic respiratory failure. The patient is monitored in ICU. The patient is confused and being sedated at this time. Dr. Dorantes is following the patient. The patient is on broad-spectrum IV antibiotics. A 2-D echocardiogram showed ejection fraction of 50 to 60%. PAST MEDICAL HISTORY: Reviewed. Review of systems could not be taken. The patient is drowsy. Current medications are reviewed and include: 1. DuoNeb q.i.d. and p.r.n. 2. Cogentin 1 mg p.o. b.i.d. 3. Pulmicort 1 mg b.i.d. 4. Thorazine 100 mg p.o. daily. 5. Depakote ER 500 mg b.i.d. 6. Lovenox 40 mg subcu daily. 7. Perforomist 20 mcg b.i.d. 8. Motrin 800 mg t.i.d. p.r.n. 9. Humalog a.c. and at bedtime. 10. Levaquin 750 daily. 11. Ativan 0.5 mg q.6 p.r.n. 12. Solu-Medrol 40 q.6. 13. Replacement protocol. 14. Tamiflu 7.5 mg p.o. b.i.d. 15. Protonix 40 mg daily. PHYSICAL EXAMINATION: The pulse is 89, blood pressure 100/65, respirations 14, temperature 97.4, pulse ox 94% on 15-L high flow nasal cannula. HEENT: Conjunctivae normal. NECK: No jugular venous distention. CARDIOVASCULAR: S1 and S2, muffled. No S3, no S4. RESPIRATORY: Breath sounds diminished at the bases. Bilateral scattered rhonchi, expiratory wheezing also present. ABDOMEN: Soft, nontender, no mass palpable. LEGS: No edema, no swelling. NERVOUS SYSTEM: Higher function as mentioned. Moves all four limbs. No focal motor deficits. LYMPHATIC: No lymphadenopathy in the neck, axillae or groin. SKIN: No ulcer, rash or bleeding. LABS: CBC normal except platelets are 57, creatinine 1.26, troponin 0.052. Influenza A positive. ASSESSMENT: 1. Acute influenza A with bilateral pneumonia, possibly gram-negative with sepsis and acute hypoxic respiratory failure. 2. Hyponatremia. 3. Change in mental status, metabolic encephalopathy, multifactorial. 4. Increased random blood sugar. 5. Increased creatinine with possible acute renal failure, possible prerenal factors. 6. Troponins were 0.05 indeterminate. 7. Thrombocytopenia of undetermined etiology. 8. History of development delay. 9. History of cardiac surgery with possible ASD repair. 10. FULL CODE. RECOMMENDATIONS AND DISCUSSION: In this 40-year-old gentleman who presented with multiple complex medical issues, will monitor the patient closely. Continue the current medications, continue symptomatic treatment. Otherwise continue with antivirals and antibiotics. Continue the rest of the medications. Follow closely with Dr. Dorantes and guarded prognosis because of multiple complex medical issues. Further recommendations to follow. Patient is on IV Levaquin at this time. Continue to monitor. See orders for details.
[2016-09-11 12:22] LABS: Glucose,Whole Blood 139 mg/dL (75-99)
--- NOTE | 2016-09-11 12:40 | P.PN ---
Subjective 40-year-old male patient with mental retardation/trainable mental illness, history of congenital heart disease requiring a cardiac surgery at a young age ( probably a repair of a PFO or ASD/VSD), along with history of seizures, who lives in a alf in the [facility] in [place]. The patient was visiting his family and his father noted that over the past 24 hours the patient 's breathing has gotten worse and he has congested cough and he labored breathing. No documented fever or chills. History is somewhat limited because of patient's underlying mental retardation. Despite his mental limitation, the patient according to the father is able to perform some activities of daily life including self-feeding, toileting and interacting with others on a regular basis. In the burst department, the patient was found to be febrile with a temperature of 11.9. His pulse was 123. His aspiration was 20 and his blood pressure was 108/56. He was hypoxic with a pulse ox of 80% on room air. He was placed on high flow oxygen at 15 L per minute nasal cannula. Influenza screen was positive for influenza A. He was started on Tamiflu and Levaquin. He was sent to med surgical floor and following that the patient got moved to the intensive care unit due to concern of hypoxemia. Currently the patient is on IV fluids at 100 mL an hour. He received a total of 2 L of IV bolus. He seems to be much more comfortable and less short of breath. He still requiring high flow oxygen at 15 L. Chest exit shows lower lobe infiltrates worse on the left. No pleural effusion. On his cell counts, the patient is otherwise second of 5.2 with 21% bandemia. Platelet counts are low at 64,000. The patient seems to have a acute kidney injury with a creatinine of 1.6. Could be related to a prerenal azotemic picture. Magnesium is low at 1.3. First set of troponin was at 0.05. Her blood gases that were done on the percent nonrebreather facemask showed a pH of 7.41 with a pCO2 of 37 and pO2 of 62. No reported aspiration. On 09/10/2016, the patient is being seen in follow-up. He is in the intensive care unit for bilateral lower lobe pneumonia secondary to influenza. The patient on Tamiflu. The patient is also on empiric antibiotic coverage with Levaquin. Condition is essentially the same. His was resuscitated IV fluids. Creatinine is down to 1.2. No significant leukocytosis. The follow-up chest x- ray today shows diminished aspiration along with some cardiomegaly and persistent infiltration of the lung bases more so on the left and there is also infiltration of the right side. Patient's mentation is essentially the same. He is tolerating oral intake. No nausea. No vomiting. No agitation. Echocardiogram was done earlier this morning and the results are still pending for now. On 09/11/2016The patient is doing well. His being seen in follow-up for an influenza pneumonia. He was weaned down to 10 L of oxygen nasal cannula. He was hydrated. Renal function is stabilized. His cough and chest congestion is improved. He is able to sit up on a chair. He is tolerating his diet. No nausea or vomiting. According and was done and the patient has a preserved LV function without any significant intracardiac structural deficits. Objective - Vital Signs Vital signs: Vital Signs Temp 96.6 F L 09/11/16 12:00 Pulse 91 09/11/16 12:00 Resp 16 09/11/16 12:00 BP 126/65 09/11/16 12:00 Pulse Ox 91 L 09/11/16 12:00 Intake & Output 09/10/16 09/11/16 09/11/16 18:59 06:59 18:59 Intake Total 1025 600 300 Balance 1025 600 300 Intake: IV 1025 600 300 0.9 NACL 900 600 300 Sodium Phosphate 10 mmol 125 In Sodium Chloride 0.9% 250 ml @ 125 mls/hr IVPB ONCE ONE Rx#:[id number] Other: Voiding Method Toilet Toilet Toilet Urinal Urinal Urinal # Voids 1 1 1 # Bowel Movements 1 1 - Exam Head exam was generally normal. There was no scleral icterus or corneal arcus. Mucous membranes were moist. Mucous membranes are dry and the patient is a large tongue with significant crowding of the posterior oropharynx. No with or neck masses. No thrush. Lungs sounds are diminished in lung bases along with some bibasilar crackles also on the left. Heart sounds are regular, slightly tachycardic, positive S1-S2 and there is no significant murmurs appreciated. Sternum stable clean and intact.Abdominal exam revealed normal bowel sounds. The abdomen was soft, non-tender, and without masses, organomegaly, or appreciable enlargement of the abdominal aorta.Examination of the extremities revealed easily palpable radial, femoral and pedal pulses. There was no cyanosis , clubbing or edema. Neurologically the patient is awake and he is following Simple Commands. The Patient Is Able to Move All 4 Extremities without Any Limitation. - Labs CBC & Chem 7: 09/11/16 04:31 09/11/16 04:31 Labs: Abnormal Lab Results - Last 24 Hours (Table) 09/10/16 09/10/16 09/11/16 Range/Units 17:46 21:11 04:31 RBC 4.22 L (4.30-5.90) m/uL Hct 38.2 L (39.0-53.0) % Plt Count 61 L (150-450) k/uL Lymphocytes # 0.5 L (1.0-4.8) k/uL Chloride (98-107) mmol/L BUN (9-20) mg/dL Glucose (74-99) mg/dL POC Glucose (mg/dL) 220 H 173 H (75-99) mg/dL Calcium (8.4-10.2) mg/dL Phosphorus (2.5-4.5) mg/dL 09/11/16 09/11/16 09/11/16 Range/Units 04:31 07:27 12:20 RBC (4.30-5.90) m/uL Hct (39.0-53.0) % Plt Count (150-450) k/uL Lymphocytes # (1.0-4.8) k/uL Chloride 109 H (98-107) mmol/L BUN 22 H (9-20) mg/dL Glucose 142 H (74-99) mg/dL POC Glucose (mg/dL) 131 H 139 H (75-99) mg/dL Calcium 8.3 L (8.4-10.2) mg/dL Phosphorus 2.0 L (2.5-4.5) mg/dL Assessment and Plan Plan: Assessment 1 acute bilateral lower lobe and he was a pneumonia, worse on the left. On today's evaluation of 09/10/2016, the patient's condition remains stable. No worsening in his oxygenation. No changes in his x-ray findings. Still short of breath with limited amount of activity and the patient is still covered with same antibiotic coverage including a combination of Tamiflu and Levaquin. On today's evaluation of the 2016, the patient is improving. Chest x-ray still showing infiltration of the lung bases bilaterally however clinically the patient is actually she is improving and the patient was weaned down to 10 L about 2 by nasal cannula. He is still and accommodation of Tamiflu, Levaquin and IV Solu-Medrol. 2 acute hypoxic respiratory failure secondary to above, improving 3 acute kidney injury recovered and the patient's renal function is normalized 4 bandemia without leukocytosis 5 thrombocytopenia, chronicity , with a stable platelet count 6 mental retardation/developmental delay 7 congenital heart disease with a previous cardiac surgery echo results were noted 8 seizure disorder Plan keep the patient intensive care unit. . Wean off FiO2 as tolerated to maintain a saturation above 90%. Continue Levaquin. Continue Tamiflu. Continue systemic steroids. Monitor the plated count. Repeat chest x-ray in the morning. Lovenox for DVT prophylaxis. We'll follow.
[2016-09-11] MEDS: LEVOFLOXACIN 750MG-D5W PMX 750 MG in DEXTROSE/WATER 1 150ML.BAG IVPB SCH (13:40)
[2016-09-11 17:16] LABS: Glucose,Whole Blood 148 mg/dL (75-99)
[2016-09-11] MEDS: CHLORPROMAZINE 100 MG PO SCH (17:28)
[2016-09-11 21:43] LABS: Glucose,Whole Blood 140 mg/dL (75-99)
[2016-09-12] MEDS: methylPREDNISolone SOD SUCCI 40 MG/ML 1 ML VIAL IV SCH ×4 (00:53→17:43)
[2016-09-12] MEDS: SODIUM CHLORIDE 0.9% 1,000 ML IV SCH (03:19)
[2016-09-12 05:04] LABS: Basophils % (A) 0 %; CH 30.7; CHCM 33.7; Eosinophils % (A) 0 %; HCT 40.2 % (39.0-53.0); HDW 2.98; HGB 13.2 gm/dL (13.0-17.5); Luc # (Auto) 0.07; Luc % (Auto) 1; Lymphocytes # (A) 0.4 k/uL (1.0-4.8); Lymphocytes % (A) 7 %; MCH 30.2 pg (25.0-35.0); MCHC 32.9 g/dL (31.0-37.0); MCV 91.7 fL (80.0-100.0); Mean Platelet Volume 8.2; Monocytes # (A) 0.3 k/uL (0-1.0); Monocytes % (A) 4 %; Neutrophils # (A) 5.8 k/uL (1.3-7.7); Neutrophils % (A) 89 %; RBC 4.38 m/uL (4.30-5.90); RDW 13.4 % (11.5-15.5); WBC 6.6 k/uL (3.8-10.6); WBC (Perox) 6.97
[2016-09-12 05:14] LABS: Anion Gap 9 mmol/L; Blood Urea Nitrogen 21 mg/dL (9-20); Calcium 8.2 mg/dL (8.4-10.2); Carbon Dioxide 27 mmol/L (22-30); Chloride 107 mmol/L (98-107); Glucose 164 mg/dL (74-99); Magnesium 1.8 mg/dL (1.6-2.3); Non-African American GFR(MDRD) >60 (>60 ml/min/1.73 sqM); Phosphorous 2.9 mg/dL (2.5-4.5); Sodium 143 mmol/L (137-145)
[2016-09-12 05:19] LABS: Potassium 4.3 mmol/L (3.5-5.1)
[2016-09-12] MEDS ORDERED: Magnesium Replacement Protocol 1 EACH MISC MISCELLANE PRN (05:27)
[2016-09-12] MEDS: MAGNESIUM SULFATE-D5W PMX 1 GM in DEXTROSE/WATER 1 100ML.BAG IVPB SCH ×2 (06:03→08:42)
--- NOTE | 2016-09-12 07:17 | XR ---
EXAMINATION TYPE: XR chest 1V DATE OF EXAM: 09/12/2016 6:39 AM CLINICAL HISTORY: Difficulty breathing progress study. TECHNIQUE: Single AP portable upright view of the chest is obtained. COMPARISON: Chest x-ray from one day earlier FINDINGS: Sternal wires are redemonstrated. There is persistent cardiomegaly with small bilateral pl eural effusions and bilateral lower lung atelectasis and/or infiltrate. There is central vascular con gestion with mild interstitial edema or Jaden B lines in the left lung periphery. Low lung volumes a re redemonstrated. Osseous structures are intact. IMPRESSION: Consider CHF exacerbation as there is cardiomegaly with small bilateral pleural effusions as well as interstitial edema and central vascular congestion all redemonstrated. There is also slig htly more prominent bibasilar atelectasis and/or infiltrate again seen out of proportion than typical for effusions related to CHF. Underlying infectious process is not excluded. No significant change f rom one day earlier.
[2016-09-12 07:40] LABS: Glucose,Whole Blood 131 mg/dL (75-99)
[2016-09-12] MEDS: FORMOTEROL FUMARATE 20 MCG/2 ML NEBU INHALATION SCH ×2 (08:14→19:43)
[2016-09-12] MEDS: BUDESONIDE 1 MG/2 ML NEBU INHALATION SCH ×2 (08:15→19:43)
[2016-09-12] MEDS: IPRATROPIUM-ALBUTEROL 3 ML NEB INHALATION SCH ×4 (08:16→19:43)
[2016-09-12] MEDS: OSELTAMIVIR 75 MG CAP PO SCH ×2 (08:41→20:43)
[2016-09-12] MEDS: PANTOPRAZOLE 40 MG/10 ML VIAL IVP SCH (08:41)
[2016-09-12] MEDS: ENOXAPARIN 40 MG/0.4 ML SYRINGE SQ SCH (08:41)
[2016-09-12] MEDS: chlorproMAZINE 25 MG TAB PO SCH (08:41)
[2016-09-12] MEDS: DIVALPROEX ER 500 MG TAB.ER.24H PO SCH ×2 (08:42→20:43)
[2016-09-12] MEDS: INSULIN LISPRO (humaLOG) 300 UNIT/3 ML VIAL SQ SCH ×4 (08:42→20:43)
[2016-09-12] MEDS: BENZTROPINE MESYLATE 1 MG TAB PO SCH ×2 (08:42→20:43)
[2016-09-12 12:03] LABS: Glucose,Whole Blood 134 mg/dL (75-99)
[2016-09-12] MEDS: LEVOFLOXACIN 750MG-D5W PMX 750 MG in DEXTROSE/WATER 1 150ML.BAG IVPB SCH (12:03)
--- NOTE | 2016-09-12 12:54 | PN ---
DATE OF SERVICE: 09/11/2016 This is a 40-year-old gentleman who was admitted with acute influenza. Had bilateral pneumonia, acute respiratory failure. The patient also had change in mental status, metabolic encephalopathy, acute on chronic. The patient started on antivirals and antibiotics and bronchodilators. The patient will be closely monitored at this time. The most recent chest x-ray personally reviewed by me showed significant infiltrate. Still, the patient is being closely monitored. Dr. Dorantes is following the patient closely. The oxygen requirement appears to be improving at this time. The patient also had a baseline developmental delay also. PAST MEDICAL HISTORY: Reviewed. REVIEW OF SYSTEMS: Could not be taken at length. The current medications are reviewed and include DuoNeb q.i.d., Cogentin 1 mg b.i.d., Pulmicort 1 mg b.i.d., Thorazine 100 mg daily, Depakote 500 mg b.i.d., Lovenox 40 mg subQ daily, Perforomist 20 gm b.i.d., Motrin 800 mg t.i.d., Humalog scale, Levaquin 750 daily, Ativan 0.5 q.6 p.r.n., Solu-Medrol 40 IV q.6, supplement protocol, Tamiflu 75 mg b.i.d., Protonix 40 mg daily. PHYSICAL EXAM: Patient is alert and orientated x1. Pulse 95, blood pressure 140/60, respirations 20, temperature 97.4, pulse ox 96% on 10 L high-flow nasal cannula. HEENT: Conjunctivae normal, oral mucosa moist. Neck is no jugular venous distension, no carotid bruit. No lymph node enlargement. CARDIOVASCULAR: S1, S2, muffled. No S3, no S4. RESPIRATORY: Breath sounds diminished at the bases, bilateral scattered rhonchi, no crackles. Expiratory wheezing also present. ABDOMEN: Soft, nontender. EXTREMITIES: Legs no edema, no swelling. NERVOUS SYSTEM: Unchanged. SKIN No ulcer, rash or bleeding. LABS: WBC is 7.2, hemoglobin is 13 and calcium is 8.3, glucose 142. ASSESSMENT: 1. Acute influenza A with bilateral pneumonia, possibly gram-negative with sepsis, with acute hypoxic respiratory failure, present on admission, on high flow nasal cannula at this time. 2. Hyponatremia, possibly hypovolemic. 3. Change in mental status, metabolic encephalopathy, multifactorial. 4. Increased random blood sugar. 5. Increased creatinine with possible acute renal failure, possible prerenal factors. 6. Troponin 0.05, indeterminate. 7. Thrombocytopenia of undetermined etiology, possibly viral. 8. History of developmental delay. 9. History of cardiac surgery with possibly ASD repair in the remote past. 10. FULL CODE. RECOMMENDATION: In this 40-year-old gentleman who presented with multiple complex medical issues, will monitor the patient closely. Continue with the current medication. I would recommend to continue with the DVT prophylaxis. Continue the home medications and intensive bronchodilator treatment. Continue with the Tamiflu, continue with the antibiotics. The cultures are negative so far. Will recommend repeat labs, PT, OT evaluation, increase ambulation. Closely monitor. Prognosis guarded. Further recommendations to follow.
--- NOTE | 2016-09-12 15:41 | P.PN ---
Subjective Principal diagnosis: Acute bilateral pneumonia 40-year-old male patient with mental retardation/trainable mental illness, history of congenital heart disease requiring a cardiac surgery at a young age ( probably a repair of a PFO or ASD/VSD), along with history of seizures, who lives in a fci in the [facility] in [place]. The patient was visiting his family and his father noted that over the past 24 hours the patient 's breathing has gotten worse and he has congested cough and he labored breathing. No documented fever or chills. History is somewhat limited because of patient's underlying mental retardation. Despite his mental limitation, the patient according to the father is able to perform some activities of daily life including self-feeding, toileting and interacting with others on a regular basis. In the burst department, the patient was found to be febrile with a temperature of 11.9. His pulse was 123. His aspiration was 20 and his blood pressure was 108/56. He was hypoxic with a pulse ox of 80% on room air. He was placed on high flow oxygen at 15 L per minute nasal cannula. Influenza screen was positive for influenza A. He was started on Tamiflu and Levaquin. He was sent to med surgical floor and following that the patient got moved to the intensive care unit due to concern of hypoxemia. Currently the patient is on IV fluids at 100 mL an hour. He received a total of 2 L of IV bolus. He seems to be much more comfortable and less short of breath. He still requiring high flow oxygen at 15 L. Chest exit shows lower lobe infiltrates worse on the left. No pleural effusion. On his cell counts, the patient is otherwise second of 5.2 with 21% bandemia. Platelet counts are low at 64,000. The patient seems to have a acute kidney injury with a creatinine of 1.6. Could be related to a prerenal azotemic picture. Magnesium is low at 1.3. First set of troponin was at 0.05. Her blood gases that were done on the percent nonrebreather facemask showed a pH of 7.41 with a pCO2 of 37 and pO2 of 62. No reported aspiration. On 09/10/2016, the patient is being seen in follow-up. He is in the intensive care unit for bilateral lower lobe pneumonia secondary to influenza. The patient on Tamiflu. The patient is also on empiric antibiotic coverage with Levaquin. Condition is essentially the same. His was resuscitated IV fluids. Creatinine is down to 1.2. No significant leukocytosis. The follow-up chest x- ray today shows diminished aspiration along with some cardiomegaly and persistent infiltration of the lung bases more so on the left and there is also infiltration of the right side. Patient's mentation is essentially the same. He is tolerating oral intake. No nausea. No vomiting. No agitation. Echocardiogram was done earlier this morning and the results are still pending for now. On 09/11/2016The patient is doing well. His being seen in follow-up for an influenza pneumonia. He was weaned down to 10 L of oxygen nasal cannula. He was hydrated. Renal function is stabilized. His cough and chest congestion is improved. He is able to sit up on a chair. He is tolerating his diet. No nausea or vomiting. According and was done and the patient has a preserved LV function without any significant intracardiac structural deficits. On 09/12/2016, patient continues to do well, recovering quite well from his pneumonia and his recent influenza infection. Patient has cough which is productive with slightly yellow phlegm, no fever no chills no hemoptysis no chest pain. His echocardiogram was reviewed and it seems to be relatively unremarkable. Patient is weaning off high flow FiO2, and so far he seems to be tolerating well. CBC today showed WBC count of 6.6 hemoglobin is 13.2 basic metabolic profile is normal. Objective - Vital Signs Vital signs: Vital Signs Temp 98 F 09/12/16 12:00 Pulse 82 09/12/16 12:00 Resp 24 09/12/16 12:00 BP 157/78 09/12/16 12:00 Pulse Ox 96 09/12/16 12:00 Intake & Output 09/11/16 09/12/16 09/12/16 18:59 06:59 18:59 Intake Total 700 650 300 Balance 700 650 300 Weight 93.5 kg Intake: IV 600 650 200 0.9 NACL 600 650 200 Intake, IV Titration 100 Amount Magnesium Sulfate-D5w Pmx 100 1 gm In Dextrose/Water 1 100ml.bag @ 100 mls/hr IVPB Q1H [facility] Rx#: [id number] Oral 100 Other: Voiding Method Toilet Toilet Toilet Urinal Urinal Urinal # Voids 1 1 # Bowel Movements 1 - Exam Head exam was generally normal. There was no scleral icterus or corneal arcus. Mucous membranes were moist. Mucous membranes are dry and the patient is a large tongue with significant crowding of the posterior oropharynx. No with or neck masses. No thrush. Lungs sounds are diminished in lung bases along with some bibasilar crackles also on the left. Heart sounds are regular, slightly tachycardic, positive S1-S2 and there is no significant murmurs appreciated. Sternum stable clean and intact.Abdominal exam revealed normal bowel sounds. The abdomen was soft, non-tender, and without masses, organomegaly, or appreciable enlargement of the abdominal aorta.Examination of the extremities revealed easily palpable radial, femoral and pedal pulses. There was no cyanosis , clubbing or edema. Neurologically the patient is awake and he is following Simple Commands. The Patient Is Able to Move All 4 Extremities without Any Limitation. - Labs CBC & Chem 7: 09/12/16 04:29 09/12/16 04:29 Labs: Abnormal Lab Results - Last 24 Hours (Table) 09/11/16 09/11/16 09/12/16 Range/Units 17:14 21:42 04:29 Plt Count 72 L (150-450) k/uL Lymphocytes # 0.4 L (1.0-4.8) k/uL BUN (9-20) mg/dL Glucose (74-99) mg/dL POC Glucose (mg/dL) 148 H 140 H (75-99) mg/dL Calcium (8.4-10.2) mg/dL 09/12/16 09/12/16 09/12/16 Range/Units 04:29 07:37 12:01 Plt Count (150-450) k/uL Lymphocytes # (1.0-4.8) k/uL BUN 21 H (9-20) mg/dL Glucose 164 H (74-99) mg/dL POC Glucose (mg/dL) 131 H 134 H (75-99) mg/dL Calcium 8.2 L (8.4-10.2) mg/dL Assessment and Plan Plan: 1 acute bilateral lower lobe and he was a pneumonia, worse on the left. On today's evaluation of 09/10/2016, the patient's condition remains stable. No worsening in his oxygenation. No changes in his x-ray findings. Still short of breath with limited amount of activity and the patient is still covered with same antibiotic coverage including a combination of Tamiflu and Levaquin. On today's evaluation of the 2016, the patient is improving. Chest x-ray still showing infiltration of the lung bases bilaterally however clinically the patient is actually she is improving and the patient was weaned down to 10 L about 2 by nasal cannula. He is still and accommodation of Tamiflu, Levaquin and IV Solu-Medrol. On today's evaluation August 25, patient continues to do well, I will continue the same treatment plan I likely transfer the patient out of the ICU. 2 acute hypoxic respiratory failure secondary to above, improving 3 acute kidney injury recovered and the patient's renal function is normalized 4 bandemia without leukocytosis 5 thrombocytopenia, chronicity , with a stable platelet count 6 mental retardation/developmental delay 7 congenital heart disease with a previous cardiac surgery echo results were noted 8 seizure disorder Recommendation: Continue to wean off O2, continue Levaquin, continue Tamiflu, and follow-up chest x-ray in a.m. Consider transferring the patient out of the ICU today. Time with Patient: Less than 30
[2016-09-12 17:15] LABS: Glucose,Whole Blood 176 mg/dL (75-99)
[2016-09-12] MEDS: CHLORPROMAZINE 100 MG PO SCH (17:43)
[2016-09-12 20:40] LABS: Glucose,Whole Blood 183 mg/dL (75-99)
[2016-09-13] MEDS: methylPREDNISolone SOD SUCCI 40 MG/ML 1 ML VIAL IV SCH ×4 (01:13→20:48)
[2016-09-13] MEDS: SODIUM CHLORIDE 0.9% 1,000 ML IV SCH ×2 (01:23→16:55)
[2016-09-13 05:02] LABS: Basophils % (A) 0 %; CH 30.6; CHCM 33.9; Eosinophils % (A) 0 %; HCT 39.8 % (39.0-53.0); HDW 2.94; HGB 13.5 gm/dL (13.0-17.5); Luc % (Auto) 2; Lymphocytes # (A) 0.5 k/uL (1.0-4.8); Lymphocytes % (A) 8 %; MCH 30.7 pg (25.0-35.0); MCHC 33.8 g/dL (31.0-37.0); MCV 90.7 fL (80.0-100.0); Monocytes # (A) 0.3 k/uL (0-1.0); Monocytes % (A) 4 %; Neutrophils # (A) 5.3 k/uL (1.3-7.7); Neutrophils % (A) 86 %; RBC 4.39 m/uL (4.30-5.90); RDW 13.1 % (11.5-15.5); WBC 6.1 k/uL (3.8-10.6); WBC (Perox) 6.69
[2016-09-13 05:25] LABS: Anion Gap 8 mmol/L; Blood Urea Nitrogen 20 mg/dL (9-20); Calcium 8.1 mg/dL (8.4-10.2); Carbon Dioxide 29 mmol/L (22-30); Chloride 104 mmol/L (98-107); Magnesium 1.9 mg/dL (1.6-2.3); Non-African American GFR(MDRD) >60 (>60 ml/min/1.73 sqM); Phosphorous 3.4 mg/dL (2.5-4.5); Potassium 4.2 mmol/L (3.5-5.1); Sodium 141 mmol/L (137-145)
[2016-09-13] MEDS ORDERED: Magnesium Replacement Protocol 1 EACH MISC MISCELLANE PRN (05:47)
[2016-09-13 06:14] LABS: Glucose 144 mg/dL (74-99)
[2016-09-13] MEDS: MAGNESIUM SULFATE-D5W PMX 1 GM in DEXTROSE/WATER 1 100ML.BAG IVPB SCH ×2 (06:33→08:25)
[2016-09-13 07:40] LABS: Glucose,Whole Blood 150 mg/dL (75-99)
[2016-09-13] MEDS: FORMOTEROL FUMARATE 20 MCG/2 ML NEBU INHALATION SCH ×2 (07:42→20:01)
[2016-09-13] MEDS: IPRATROPIUM-ALBUTEROL 3 ML NEB INHALATION SCH ×4 (07:42→20:00)
[2016-09-13] MEDS: BUDESONIDE 1 MG/2 ML NEBU INHALATION SCH ×2 (07:43→20:01)
[2016-09-13] MEDS: DIVALPROEX ER 500 MG TAB.ER.24H PO SCH ×2 (08:15→20:45)
[2016-09-13] MEDS: OSELTAMIVIR 75 MG CAP PO SCH ×2 (08:15→20:45)
[2016-09-13] MEDS: chlorproMAZINE 25 MG TAB PO SCH (08:15)
[2016-09-13] MEDS: BENZTROPINE MESYLATE 1 MG TAB PO SCH ×2 (08:15→20:45)
[2016-09-13] MEDS: PANTOPRAZOLE 40 MG TABLET PO SCH (08:15)
[2016-09-13] MEDS: ENOXAPARIN 40 MG/0.4 ML SYRINGE SQ SCH (08:15)
[2016-09-13] MEDS: INSULIN LISPRO (humaLOG) 300 UNIT/3 ML VIAL SQ SCH ×4 (08:16→21:31)
--- NOTE | 2016-09-13 09:24 | PN ---
DATE OF SERVICE: 09/12/2016 This 40 -year-old gentleman admitted to the hospital with influenza A also had bilateral pneumonia and features of acute respiratory failure and possible sepsis. The patient being closely monitored. The patient also had change in mental status, metabolic encephalopathy, metabolic encephalopathy, sensorium is improving slightly. The patient is still confused. The patient also had thrombocytopenia. Blood sugars also elevated. monitored in the ICU. Past medical history reviewed. Review of systems could not be taken, the patient is confused. Current medications are reviewed and include: 1. DuoNeb q.i.d. and p.r.n. 2. Cogentin 1 mg b.i.d. 3. Pulmicort 1 mg b.i.d. 4. Thorazine 100 milligrams p.o. daily. 5. Depakote ER 500 mg b.i.d. 6. Lovenox 40 mg subcu daily. 7. Perforomist one b.i.d. 8. Motrin 800 mg t.i.d. 9. Humalog . 10. Levaquin 750 daily. 11. Ativan. 12. Solu-Medrol 40 mg IV every 6. 13. P.r.n. medications. 15. Protonix 40 mg daily. 16. IV fluids. PHYSICAL EXAMINATION: The patient is alert and oriented times one. Pulse 82. Blood pressure 157/78. Respiratory rate 24, temperature 98 degrees, pulse ox 98% on 5 L high flow nasal cannula. HEENT: Conjunctivae normal. Oral mucosa moist. NECK: No jugular venous distention. No carotid bruit. No lymph node enlargement. CARDIOVASCULAR: S1, S2 normal. No S3, no S4. RESPIRATORY: Breath sounds diminished at the bases, bilateral scattered rhonchi and crackles. Expiratory wheezing also present. ABDOMEN: Soft, nontender. No mass palpable. LEGS: No edema. No swelling. Nervous system: Higher functions as mentioned earlier. Moves all 4 limbs. Unchanged. LYMPHATICS: No lymph nodes palpable in the neck, axillae or groin. SKIN: No ulcer, rash or bleeding. LABS: A chest x-ray personally reviewed by me showed evidence of suspected evidence of bilateral pneumonia, and as well as expected fluid overload also. Labs are WBC 6.6, platelets are 72. ASSESSMENT: 1. Acute influenza A with a bilateral pneumonia, possibly gram-negative sepsis with acute hypoxic respiratory failure, present on admission with sepsis on high flow nasal cannula at this time. 2. Hyponatremia with possibly hypovolemia. 3. Change in the status, metabolic encephalopathy, multifactorial. 4. Increased random blood sugar secondary to steroids. 5. Increased creatinine with possible acute renal failure, possible prerenal factors. 6. Troponin 0.056 indeterminate. 7. Thrombocytopenia of undetermined etiology, possibly viral. 8. History of developmental delay. 9. History of cardiac surgery with possibly ST depression in the remote past. 10. FULL CODE. Recommendations and discussion: I recommend to continue current medications. Continue symptomatic treatment with bronchodilators and continue empiric antibiotics, antivirals. Increase ambulation. Otherwise, closely follow. Guarded prognosis. Further recommendations to follow. MTDD
--- NOTE | 2016-09-13 12:02 | P.PN ---
Subjective Principal diagnosis: Acute bilateral pneumonia 40-year-old male patient with mental retardation/trainable mental illness, history of congenital heart disease requiring a cardiac surgery at a young age ( probably a repair of a PFO or ASD/VSD), along with history of seizures, who lives in a senior care in the [facility] in [place]. The patient was visiting his family and his father noted that over the past 24 hours the patient 's breathing has gotten worse and he has congested cough and he labored breathing. No documented fever or chills. History is somewhat limited because of patient's underlying mental retardation. Despite his mental limitation, the patient according to the father is able to perform some activities of daily life including self-feeding, toileting and interacting with others on a regular basis. In the burst department, the patient was found to be febrile with a temperature of 11.9. His pulse was 123. His aspiration was 20 and his blood pressure was 108/56. He was hypoxic with a pulse ox of 80% on room air. He was placed on high flow oxygen at 15 L per minute nasal cannula. Influenza screen was positive for influenza A. He was started on Tamiflu and Levaquin. He was sent to med surgical floor and following that the patient got moved to the intensive care unit due to concern of hypoxemia. Currently the patient is on IV fluids at 100 mL an hour. He received a total of 2 L of IV bolus. He seems to be much more comfortable and less short of breath. He still requiring high flow oxygen at 15 L. Chest exit shows lower lobe infiltrates worse on the left. No pleural effusion. On his cell counts, the patient is otherwise second of 5.2 with 21% bandemia. Platelet counts are low at 64,000. The patient seems to have a acute kidney injury with a creatinine of 1.6. Could be related to a prerenal azotemic picture. Magnesium is low at 1.3. First set of troponin was at 0.05. Her blood gases that were done on the percent nonrebreather facemask showed a pH of 7.41 with a pCO2 of 37 and pO2 of 62. No reported aspiration. On 09/10/2016, the patient is being seen in follow-up. He is in the intensive care unit for bilateral lower lobe pneumonia secondary to influenza. The patient on Tamiflu. The patient is also on empiric antibiotic coverage with Levaquin. Condition is essentially the same. His was resuscitated IV fluids. Creatinine is down to 1.2. No significant leukocytosis. The follow-up chest x- ray today shows diminished aspiration along with some cardiomegaly and persistent infiltration of the lung bases more so on the left and there is also infiltration of the right side. Patient's mentation is essentially the same. He is tolerating oral intake. No nausea. No vomiting. No agitation. Echocardiogram was done earlier this morning and the results are still pending for now. On 09/11/2016The patient is doing well. His being seen in follow-up for an influenza pneumonia. He was weaned down to 10 L of oxygen nasal cannula. He was hydrated. Renal function is stabilized. His cough and chest congestion is improved. He is able to sit up on a chair. He is tolerating his diet. No nausea or vomiting. According and was done and the patient has a preserved LV function without any significant intracardiac structural deficits. On 09/12/2016, patient continues to do well, recovering quite well from his pneumonia and his recent influenza infection. Patient has cough which is productive with slightly yellow phlegm, no fever no chills no hemoptysis no chest pain. His echocardiogram was reviewed and it seems to be relatively unremarkable. Patient is weaning off high flow FiO2, and so far he seems to be tolerating well. CBC today showed WBC count of 6.6 hemoglobin is 13.2 basic metabolic profile is normal. Patient was seen today on 09/13/2016, doing much better, breathing a lot easier, patient is asking to be discharged home. Patient remains on oxygen via nasal cannula,, and we plan to titrate the FiO2 down hopefully eventually discharged the patient home off oxygen. CBC today is normal basic metabolic profile is normal. And his physical examination is relatively unremarkable except for minimal crackles at the bases. Objective - Vital Signs Vital signs: Vital Signs Temp 97.8 F 09/13/16 08:14 Pulse 72 09/13/16 11:52 Resp 20 09/13/16 08:14 BP 157/78 09/13/16 08:14 Pulse Ox 93 L 09/13/16 08:14 Intake & Output 09/12/16 09/13/16 09/13/16 18:59 06:59 18:59 Intake Total 500 650 Output Total 0 Balance 500 650 Weight 93.5 kg Intake: IV 400 650 0.9 NACL 400 650 Intake, IV Titration 100 Amount Magnesium Sulfate-D5w Pmx 100 1 gm In Dextrose/Water 1 100ml.bag @ 100 mls/hr IVPB Q1H [facility] Rx#: [id number] Output: Urine 0 Other: Voiding Method Toilet Toilet Toilet Urinal Urinal Urinal # Voids 1 1 # Bowel Movements 1 - Exam Head exam was generally normal. There was no scleral icterus or corneal arcus. Mucous membranes were moist. Mucous membranes are dry and the patient is a large tongue with significant crowding of the posterior oropharynx. No with or neck masses. No thrush. Lungs sounds are diminished in lung bases along with some bibasilar crackles also on the left. Heart sounds are regular, slightly tachycardic, positive S1-S2 and there is no significant murmurs appreciated. Sternum stable clean and intact.Abdominal exam revealed normal bowel sounds. The abdomen was soft, non-tender, and without masses, organomegaly, or appreciable enlargement of the abdominal aorta.Examination of the extremities revealed easily palpable radial, femoral and pedal pulses. There was no cyanosis , clubbing or edema. Neurologically the patient is awake and he is following Simple Commands. The Patient Is Able to Move All 4 Extremities without Any Limitation. - Labs CBC & Chem 7: 09/13/16 04:45 09/13/16 04:45 Labs: Abnormal Lab Results - Last 24 Hours (Table) 09/12/16 09/12/16 09/12/16 Range/Units 12:01 17:12 20:39 Plt Count (150-450) k/uL Lymphocytes # (1.0-4.8) k/uL Glucose (74-99) mg/dL POC Glucose (mg/dL) 134 H 176 H 183 H (75-99) mg/dL Calcium (8.4-10.2) mg/dL 09/13/16 09/13/16 09/13/16 Range/Units 04:45 04:45 07:38 Plt Count 78 L (150-450) k/uL Lymphocytes # 0.5 L (1.0-4.8) k/uL Glucose 144 H (74-99) mg/dL POC Glucose (mg/dL) 150 H (75-99) mg/dL Calcium 8.1 L (8.4-10.2) mg/dL Assessment and Plan Plan: 1 acute bilateral lower lobe and he was a pneumonia, worse on the left. On today's evaluation of 09/10/2016, the patient's condition remains stable. No worsening in his oxygenation. No changes in his x-ray findings. Still short of breath with limited amount of activity and the patient is still covered with same antibiotic coverage including a combination of Tamiflu and Levaquin. On today's evaluation of the 2016, the patient is improving. Chest x-ray still showing infiltration of the lung bases bilaterally however clinically the patient is actually she is improving and the patient was weaned down to 10 L about 2 by nasal cannula. He is still and accommodation of Tamiflu, Levaquin and IV Solu-Medrol. On today's evaluation August 25, patient continues to do well, I will continue the same treatment plan I likely transfer the patient out of the ICU. Seen on 09/13/2016, continues to do well, and we'll plan to transfer him out of the ICU watch him on the floor for at least one more day and possible discharge planning in the next 24-48 hours. 2 acute hypoxic respiratory failure secondary to above, improving 3 acute kidney injury recovered and the patient's renal function is normalized 4 bandemia without leukocytosis 5 thrombocytopenia, chronicity , with a stable platelet count 6 mental retardation/developmental delay 7 congenital heart disease with a previous cardiac surgery echo results were noted 8 seizure disorder Recommendation: Continue to wean off O2, continue Levaquin, continue Tamiflu, and follow-up chest x-ray in a.m. Transfer out of the ICU to a regular medical floor today. Time with Patient: Less than 30
[2016-09-13 13:31] LABS: Glucose,Whole Blood 121 mg/dL (75-99)
[2016-09-13] MEDS: LEVOFLOXACIN 750MG-D5W PMX 750 MG in DEXTROSE/WATER 1 150ML.BAG IVPB SCH (13:34)
[2016-09-13] MEDS: CHLORPROMAZINE 100 MG PO SCH (16:54)
[2016-09-13 17:41] LABS: Glucose,Whole Blood 153 mg/dL (75-99)
[2016-09-13 20:26] LABS: Glucose,Whole Blood 113 mg/dL (75-99)
--- NOTE | 2016-09-13 20:52 | PN ---
DATE OF SERVICE: 09/13/2016 This 40-year-old gentleman admitted with acute influenza, also had acute respiratory failure. The patient has bilateral pneumonia as well. The patient also could have aspiration. The patient is being monitored in the ICU. Dr. Aquino is following the patient closely. The patient is on antibiotics and IV steroids also, Solu-Medrol IV every 6. PAST MEDICAL HISTORY: Reviewed. REVIEW OF SYSTEMS: CARDIOVASCULAR: No angina or palpitations. RESPIRATORY: As mentioned. GI: As mentioned. : No dysuria or hematuria. NERVOUS SYSTEM: Mildly confused. Current medications are: 1. DuoNeb q.i.d. and p.r.n. 3. Pulmicort 1 mg b.i.d. 5. Depakote 5 mg b.i.d. 6. Lovenox 40 mg daily. 8. Motrin 800 mg t.i.d. 9. Levaquin 750 every 24 hours. 10. Ativan 0.5 every 6 hours p.r.n. 11. Solu-Medrol 40 mg IV every 6 hours. 12. Depression protocols. 13. Tamiflu 70 mg p.o. 14. Protonix 40 mg daily. At this time the patient is alert, oriented x2. Pulse 80, blood pressure 150/77, respirations 20, temperature 97.8, pulse ox 92% on 6 liters. HEENT: Conjunctivae normal. Oral mucosa moist. NECK: No JVD. No carotid bruits or lymph node enlargement. CARDIOVASCULAR: S1 and S2. LUNGS: Breath sounds are diminished at the bases. Bilateral scattered rhonchi and crackles. ABDOMEN: Soft. EXTREMITIES: No edema. NERVOUS SYSTEM: Diffusely weak. LABS: Platelets 78, Accu-Cheks noted. Other labs are noted. Chest x-ray reviewed. ASSESSMENT: 1. Acute influenza A with bilateral pneumonia, possibly gram-negative with sepsis and acute hypoxic respiratory failure present on admission with sepsis, on high-flow nasal cannula at this time. 2. Hyponatremia with possibly hypovolemic. 3. Change in mental status, metabolic encephalopathy, multifactorial. 4. Increased random blood sugar, possibly secondary to steroids. 5. Increased creatinine with possible acute renal failure, possible prerenal factors, present on admission. 6. Troponin 0.056, indeterminate. 7. Thrombocytopenia, undetermined etiology, possibly secondary to viral infection. 8. History of developmental delay. 9. History of cardiac surgery with possibly ASD surgery in the remote past. 10. FULL CODE. RECOMMENDATIONS: This 40-year-old gentleman presented with multiple complex medical problems. I have recommended to continue current medical issues, continue bronchodilators, continue antibiotics. Taper the steroids. Monitor blood sugars closely. Continue oxygen. We will evaluate the patient for need for home oxygen. Closely follow with Dr. Aquino. Guarded prognosis because of multiple complex medical issues. Further recommendations to follow. MTDD
[2016-09-14 04:58] LABS: Basophils % (A) 0 %; CH 30.8; CHCM 34.5; Eosinophils % (A) 0 %; HCT 39.9 % (39.0-53.0); HDW 2.93; HGB 13.4 gm/dL (13.0-17.5); Luc # (Auto) 0.16; Luc % (Auto) 2; Lymphocytes # (A) 0.7 k/uL (1.0-4.8); Lymphocytes % (A) 11 %; MCH 30.3 pg (25.0-35.0); MCHC 33.7 g/dL (31.0-37.0); MCV 89.9 fL (80.0-100.0); Mean Platelet Volume 8.3; Monocytes # (A) 0.4 k/uL (0-1.0); Monocytes % (A) 7 %; Neutrophils # (A) 5.2 k/uL (1.3-7.7); Neutrophils % (A) 80 %; RBC 4.44 m/uL (4.30-5.90); WBC 6.5 k/uL (3.8-10.6); WBC (Perox) 7.02
[2016-09-14 05:15] LABS: Anion Gap 8 mmol/L; Blood Urea Nitrogen 18 mg/dL (9-20); Calcium 8.4 mg/dL (8.4-10.2); Carbon Dioxide 30 mmol/L (22-30); Chloride 103 mmol/L (98-107); Glucose 168 mg/dL (74-99); Non-African American GFR(MDRD) >60 (>60 ml/min/1.73 sqM); Phosphorous 3.2 mg/dL (2.5-4.5); Potassium 3.9 mmol/L (3.5-5.1); Sodium 141 mmol/L (137-145)
[2016-09-14] MEDS ORDERED: Potassium Replacement Protocol 1 EACH MISC MISCELLANE PRN (05:47)
[2016-09-14] MEDS ORDERED: POTASSIUM CHLORIDE ER 20 MEQ TAB.ER PO SCH (06:00)
--- NOTE | 2016-09-14 07:15 | XR ---
EXAMINATION TYPE: XR chest 1V portable DATE OF EXAM: 09/14/2016 6:56 AM COMPARISON: Prior chest x-ray August HISTORY: Pneumonia TECHNIQUE: Single frontal view of the chest is obtained. FINDINGS: Patient is post median sternotomy and the heart is enlarged. There is some improvement in lung volumes and aeration. No evident pneumothorax or sizable effusion. IMPRESSION: Improved aeration, additional follow-up recommended
[2016-09-14] MEDS: IPRATROPIUM-ALBUTEROL 3 ML NEB INHALATION SCH ×2 (07:42→11:56)
[2016-09-14] MEDS: FORMOTEROL FUMARATE 20 MCG/2 ML NEBU INHALATION SCH (07:42)
[2016-09-14] MEDS: BUDESONIDE 1 MG/2 ML NEBU INHALATION SCH (07:42)
[2016-09-14 07:56] LABS: Glucose,Whole Blood 114 mg/dL (75-99)
[2016-09-14 08:57] VITALS: BP 140/73; RESP 20; TEMP 97.7
[2016-09-14] MEDS: INSULIN LISPRO (humaLOG) 300 UNIT/3 ML VIAL SQ SCH ×2 (08:58→13:37)
[2016-09-14] MEDS: ENOXAPARIN 40 MG/0.4 ML SYRINGE SQ SCH (09:00)
[2016-09-14] MEDS: PANTOPRAZOLE 40 MG TABLET PO SCH (09:00)
[2016-09-14] MEDS: chlorproMAZINE 25 MG TAB PO SCH (09:00)
[2016-09-14] MEDS: BENZTROPINE MESYLATE 1 MG TAB PO SCH (09:00)
[2016-09-14] MEDS: DIVALPROEX ER 500 MG TAB.ER.24H PO SCH (09:01)
[2016-09-14] MEDS: methylPREDNISolone SOD SUCCI 40 MG/ML 1 ML VIAL IV SCH (09:01)
[2016-09-14] MEDS ORDERED: methylPREDNISolone 4 MG TAB TAPER PO SCH (10:15)
[2016-09-14] MEDS ORDERED: LEVOFLOXACIN 750 MG TAB PO SCH (10:15)
[2016-09-14 11:57] VITALS: PULSE 88
--- NOTE | 2016-09-14 12:43 | P.PN ---
Subjective Principal diagnosis: Acute bilateral pneumonia 40-year-old male patient with mental retardation/trainable mental illness, history of congenital heart disease requiring a cardiac surgery at a young age ( probably a repair of a PFO or ASD/VSD), along with history of seizures, who lives in a long-term in the [facility] in [place]. The patient was visiting his family and his father noted that over the past 24 hours the patient 's breathing has gotten worse and he has congested cough and he labored breathing. No documented fever or chills. History is somewhat limited because of patient's underlying mental retardation. Despite his mental limitation, the patient according to the father is able to perform some activities of daily life including self-feeding, toileting and interacting with others on a regular basis. In the burst department, the patient was found to be febrile with a temperature of 11.9. His pulse was 123. His aspiration was 20 and his blood pressure was 108/56. He was hypoxic with a pulse ox of 80% on room air. He was placed on high flow oxygen at 15 L per minute nasal cannula. Influenza screen was positive for influenza A. He was started on Tamiflu and Levaquin. He was sent to med surgical floor and following that the patient got moved to the intensive care unit due to concern of hypoxemia. Currently the patient is on IV fluids at 100 mL an hour. He received a total of 2 L of IV bolus. He seems to be much more comfortable and less short of breath. He still requiring high flow oxygen at 15 L. Chest exit shows lower lobe infiltrates worse on the left. No pleural effusion. On his cell counts, the patient is otherwise second of 5.2 with 21% bandemia. Platelet counts are low at 64,000. The patient seems to have a acute kidney injury with a creatinine of 1.6. Could be related to a prerenal azotemic picture. Magnesium is low at 1.3. First set of troponin was at 0.05. Her blood gases that were done on the percent nonrebreather facemask showed a pH of 7.41 with a pCO2 of 37 and pO2 of 62. No reported aspiration. On 09/10/2016, the patient is being seen in follow-up. He is in the intensive care unit for bilateral lower lobe pneumonia secondary to influenza. The patient on Tamiflu. The patient is also on empiric antibiotic coverage with Levaquin. Condition is essentially the same. His was resuscitated IV fluids. Creatinine is down to 1.2. No significant leukocytosis. The follow-up chest x- ray today shows diminished aspiration along with some cardiomegaly and persistent infiltration of the lung bases more so on the left and there is also infiltration of the right side. Patient's mentation is essentially the same. He is tolerating oral intake. No nausea. No vomiting. No agitation. Echocardiogram was done earlier this morning and the results are still pending for now. On 09/11/2016The patient is doing well. His being seen in follow-up for an influenza pneumonia. He was weaned down to 10 L of oxygen nasal cannula. He was hydrated. Renal function is stabilized. His cough and chest congestion is improved. He is able to sit up on a chair. He is tolerating his diet. No nausea or vomiting. According and was done and the patient has a preserved LV function without any significant intracardiac structural deficits. On 09/12/2016, patient continues to do well, recovering quite well from his pneumonia and his recent influenza infection. Patient has cough which is productive with slightly yellow phlegm, no fever no chills no hemoptysis no chest pain. His echocardiogram was reviewed and it seems to be relatively unremarkable. Patient is weaning off high flow FiO2, and so far he seems to be tolerating well. CBC today showed WBC count of 6.6 hemoglobin is 13.2 basic metabolic profile is normal. Patient was seen today on 09/13/2016, doing much better, breathing a lot easier, patient is asking to be discharged home. Patient remains on oxygen via nasal cannula,, and we plan to titrate the FiO2 down hopefully eventually discharged the patient home off oxygen. CBC today is normal basic metabolic profile is normal. And his physical examination is relatively unremarkable except for minimal crackles at the bases. Patient was reevaluated today on 09/14/2016, he is doing extremely well, he is off the oxygen, and his chest x-ray showed significant improvement. Hence patient could be switched to oral antibiotics, and consider discharge planning today. Objective - Vital Signs Vital signs: Vital Signs Temp 97.7 F 09/14/16 08:53 Pulse 88 09/14/16 11:56 Resp 20 09/14/16 08:53 BP 140/73 09/14/16 08:53 Pulse Ox 91 L 09/14/16 08:53 Intake & Output 09/13/16 09/14/16 09/14/16 18:59 06:59 18:59 Intake Total 200 950 Output Total 1 1 1 Balance 199 949 -1 Weight 93.5 kg Intake: IV 200 800 0.9 NACL 200 800 Intake, IV Titration 150 Amount Sodium Chloride 0.9% 1, 150 000 ml @ 50 mls/hr IV . Q20H KARLA Rx#:[id number] Output: Urine 1 Stool 1 1 Other: Voiding Method Toilet Toilet Toilet Urinal Urinal Urinal # Voids 2 - Exam Head exam was generally normal. There was no scleral icterus or corneal arcus. Mucous membranes were moist. Mucous membranes are dry and the patient is a large tongue with significant crowding of the posterior oropharynx. No with or neck masses. No thrush. Lungs sounds clear bilaterally. Heart sounds are regular, positive S1-S2 and there is no significant murmurs appreciated. Sternum stable clean and intact.Abdominal exam revealed normal bowel sounds. The abdomen was soft, non-tender, and without masses, organomegaly, or appreciable enlargement of the abdominal aorta.Examination of the extremities revealed easily palpable radial, femoral and pedal pulses. There was no cyanosis , clubbing or edema. Neurologically the patient is awake and he is following Simple Commands. The Patient Is Able to Move All 4 Extremities without Any Limitation. - Labs CBC & Chem 7: 09/14/16 04:28 09/14/16 04:28 Labs: Abnormal Lab Results - Last 24 Hours (Table) 09/13/16 09/13/16 09/13/16 Range/Units 13:30 17:40 20:24 Plt Count (150-450) k/uL Lymphocytes # (1.0-4.8) k/uL Glucose (74-99) mg/dL POC Glucose (mg/dL) 121 H 153 H 113 H (75-99) mg/dL 09/14/16 09/14/16 09/14/16 Range/Units 04:28 04:28 07:54 Plt Count 81 L (150-450) k/uL Lymphocytes # 0.7 L (1.0-4.8) k/uL Glucose 168 H (74-99) mg/dL POC Glucose (mg/dL) 114 H (75-99) mg/dL Assessment and Plan Plan: 1 acute bilateral lower lobe and he was a pneumonia, worse on the left. On today's evaluation of 09/10/2016, the patient's condition remains stable. No worsening in his oxygenation. No changes in his x-ray findings. Still short of breath with limited amount of activity and the patient is still covered with same antibiotic coverage including a combination of Tamiflu and Levaquin. On today's evaluation of the 2016, the patient is improving. Chest x-ray still showing infiltration of the lung bases bilaterally however clinically the patient is actually she is improving and the patient was weaned down to 10 L about 2 by nasal cannula. He is still and accommodation of Tamiflu, Levaquin and IV Solu-Medrol. On today's evaluation August 25, patient continues to do well, I will continue the same treatment plan I likely transfer the patient out of the ICU. Seen on 09/13/2016, continues to do well, and we'll plan to transfer him out of the ICU watch him on the floor for at least one more day and possible discharge planning in the next 24-48 hours. Seen on 09/14/2016, he is doing well clinically, chest x-ray showed improvement, patient is off oxygen, he is on nasal cannula, hence we could basically clear her for discharge today. 2 acute hypoxic respiratory failure secondary to above, improving 3 acute kidney injury recovered and the patient's renal function is normalized 4 bandemia without leukocytosis 5 thrombocytopenia, chronicity , with a stable platelet count 6 mental retardation/developmental delay 7 congenital heart disease with a previous cardiac surgery echo results were noted 8 seizure disorder Recommendation: Clear for discharge planning today. Time with Patient: Less than 30
--- NOTE | 2016-09-15 16:16 | DS ---
DATE OF ADMISSION: 09/09/2016 DATE OF DISCHARGE: 09/14/2016 FINAL DIAGNOSES: 1. Acute influenza A with bilateral pneumonia, possibly gram-negative with sepsis and acute hypoxic respiratory failure present on admission with sepsis on high flow nasal cannula. 2. Hyponatremia with possibly hypovolemic. 3. Acute metabolic encephalopathy. 4. Change in mental status, metabolic encephalopathy, multifactorial. 5. Increased random blood sugar, possibly secondary to steroids. 6. Increased creatinine with possible acute renal failure, possible prerenal factor present on admission. 7. Troponin 0.056 indeterminate. 8. Thrombocytopenia of undetermined etiology, possibly secondary to viral infection. 9. History of development delay. 10. History of cardiac surgery and possibly ASD surgery in the remote past. 11. FULL CODE. DISCHARGE DISPOSITION: The patient will be discharged in a stable condition with guarded prognosis. Discharge cleared by Dr. Aquino. Total time taken: 35 minutes. HISTORY OF PRESENT ILLNESS: This 40-year-old gentleman with a past medical history of multiple medical problems, acute influenza A, bilateral pneumonia, respiratory failure and multiple complex medical issues. Patient also had change in mental status. Patient treated with antibiotics, bronchodilators, and as well as antiviral medications. Dr. Dorantes and Dr. Aquino saw the chest x-ray which showed significant improvement. Sensorium is also improved significantly. On exam, vitals are stable. CARDIOVASCULAR SYSTEM: S1, S2. RESPIRATORY: A few scattered rhonchi. ABDOMEN: Soft. NERVOUS SYSTEM: No focal deficit. DISCHARGE ADVICE: 1. Diet is cardiac. 2. Activity limited until follow-up. 3. Follow up with primary physician in [facility]. 4. Follow up with Dr. Aquino in 2 weeks. MEDICATIONS: 1. Albuterol 2 puffs q.i.d. and p.r.n. 2. Cogentin 1 mg p.o. b.i.d. 3. Ceftin 500 mg p.o. b.i.d. for 5 days. 4. Depakote ER 500 mg p.o. b.i.d. 5. Colace 100 mg p.o. daily p.r.n. 6. Protonix 40 mg daily. 7. Thorazine 500 mg p.o. daily. 8. thorazine 100 mg p.o. daily. 9. Guaifenesin q.8 p.r.n. 10. Medrol Dosepak. The patient will be discharged in a stable condition with guarded prognosis. MTDD
== END 2016-09-14 13:42 | disposition home or self-care (01) | DRG 871 ==
LOC: EC 10:35 → 6SEL 13:48 → 6ICU 17:46
PROVIDERS: ADMIT Hospitalist; ATTEND Hospitalist
PROC: 3E0234Z Introduction of Serum, Toxoid and Vaccine into Muscle, Percutaneous Approach (ICD-10-PCS; principal; 2016-09-09)
PROC: 3E0234Z Introduction of Serum, Toxoid and Vaccine into Muscle, Percutaneous Approach (ICD-10-PCS; 2016-09-09)
DX: A41.89 Other specified sepsis (principal); G93.41 Metabolic encephalopathy; J96.01 Acute respiratory failure with hypoxia; N17.9 Acute kidney failure, unspecified; J15.6 Pneumonia due to other Gram-negative bacteria; J10.08 Influenza due to other identified influenza virus with other specified pneumonia; D69.59 Other secondary thrombocytopenia; E87.1 Hypo-osmolality and hyponatremia; T38.0X5A Adverse effect of glucocorticoids and synthetic analogues, initial encounter; D72.825 Bandemia; R53.1 Weakness; R00.0 Tachycardia, unspecified; F79 Unspecified intellectual disabilities; R73.09 Other abnormal glucose; R74.8 Abnormal levels of other serum enzymes; G40.909 Epilepsy, unspecified, not intractable, without status epilepticus; I51.7 Cardiomegaly; E86.0 Dehydration; Z23 Encounter for immunization; Z79.899 Other long term (current) drug therapy; Z87.74 Personal history of (corrected) congenital malformations of heart and circulatory system
CPT/HCPCS: 36415; 36600; 71010; 71020; 80048; 80053; 81003; 82550; 82553; 82805; 83036; 83605; 83735; 84100; 84484; 85025; 85610; 85730; 87040; 87449; 87502; 93005; 93306; 94640; 94644; 96365; 96366; 96367; 96368; 96375; 99291